=== PATIENT | male | born 1975 | race Two or more races ===

== ENCOUNTER 2021-01-16 15:23 | Inpatient (IN) | payer MEDICAID, OTHER ==
[~2021-01-16] VITALS: Ht 172.7 cm; Wt 170.6 kg
[2021-01-16] MEDS ORDERED: ETOMIDATE (2MG/ML) 20ML VIAL IV ONE (15:35)
[2021-01-16] MEDS ORDERED: SUCCINYLCHOLINE CHLORIDE 20 MG/ML 10ML VIAL IV ONE (15:35)
[2021-01-16 15:36] VITALS: BP 89/50
[2021-01-16] MEDS: MIDAZOLAM DRIP 50 mg/50mL 50 ML IV SCH ×3 (15:36→21:00)
[2021-01-16] MEDS ORDERED: PROPOFOL 100 ML IV ONE ×3 (15:45→18:58)
[2021-01-16] MEDS ORDERED: methylPREDNISolone SOD SUCC 125 MG/2 ML VL IV ONE ×2 (15:45→19:15)
[2021-01-16] MEDS: fentaNYL Drip 2500mCg/250mlNS 250 ML IV SCH (15:45)
[2021-01-16] MEDS: NOREPINEPHRINE 8 MG/250ML KIT 250 ML IV SCH (15:54)
[2021-01-16] MEDS ORDERED: NOREPINEPHRINE 8 MG/250ML KIT 250 ML IV ONE (15:54)
[2021-01-16 16:00] LABS: Basophils # (auto) 0 10 ^3/uL (0-0.2); Basophils % (auto) 0.3 % (0.0-2.0); Eosinophils # (auto) 0 10 ^3/uL (0-0.8); Eosinophils % (auto) 0.2 % (0.0-7.0); Hematocrit 44.4 % (41.0-53.0); Hemoglobin 14.9 g/dL (13.5-17.5); Lymphocytes # (auto) 1.9 10 ^3/uL (0.4-5.4); Lymphocytes % (auto) 16.1 % (10.0-50.0); Mean Corpuscular Hemoglobin 28.3 pg (28.0-32.0); Mean Corpuscular Hgb Conc. 33.6 g/dL (32.0-36.0); Mean Corpuscular Volume 84.3 fL (80.0-100.0); Monocytes # (auto) 0.7 10 ^3/uL (0-1.3); Monocytes % (auto) 5.6 % (0.0-12.0); Neutrophils # (auto) 9.2 10 ^3/uL (1.6-8.6); Neutrophils % (auto) 77.8 % (37.0-80.0); Nucleated Red Blood Cells % 1.1 %; Red Blood Cells 5.26 10^6/uL (4.5-5.90); Red Cell Distribution Width 13.9 % (11.8-14.3); White Blood Cell 11.8 10^3/uL (4.4-10.8)
[2021-01-16] MEDS ORDERED: AZITHROMYCIN 500MG/ 250ML 250 ML IV ONE (16:00)
[2021-01-16] MEDS ORDERED: methylPREDNISolone SOD SUCC 125 MG/2 ML VL ONE (16:03)
[2021-01-16 16:13] LABS: Albumin 2.7 g/dL (3.4-5.0); Magnesium 2.5 mg/dL (1.6-2.6); Potassium 3.7 mmol/L (3.5-5.1)
[2021-01-16] MEDS ORDERED: FUROSEMIDE 100 MG/10ML VIAL IV ONE (16:15)
[2021-01-16] MEDS ORDERED: ROCURONIUM 10MG/ML 10ML VIAL IV ONE (16:15)
[2021-01-16 16:19] LABS: BUN/Creatinine Ratio 13.1; Bilirubin, Total 0.6 mg/dL (0.2-1.0); Total Protein 8.1 g/dL (6.4-8.2)
[2021-01-16] MEDS: PROPOFOL 100 ML IV SCH ×3 (16:20→23:16)
[2021-01-16 16:29] LABS: Urine Bacteria FEW /hpf (None Seen); Urine Blood Negative /uL (Negative); Urine Hyaline Cast MOD /lpf (0 - 2); Urine Mucus FEW (None Seen); Urine Specific Gravity 1.021 (1.001-1.035); Urine WBC 1 /hpf (0 - 3)
[2021-01-16 18:34] LABS: Lactic Acid w/Reflex 2.7 mmol/L (0.4-2.0)
[2021-01-16 18:35] VITALS: BP 100/52
[2021-01-16] MEDS ORDERED: NOREPINEPHRINE 8 MG/250ML KIT 250 ML IV SCH (19:15)
[2021-01-16] MEDS ORDERED: PROPOFOL 100 ML IV SCH (19:15)
[2021-01-16] MEDS ORDERED: REMDESIVIR PER PHARMACY 0 ML IV SCH (19:45)
[2021-01-16] MEDS ORDERED: ACETAMINOPHEN 325 MG RECT SUPP PR PRN (20:00)
[2021-01-16] MEDS ORDERED: DEXTROSE (50%) 50ML SYRG IV PRN (20:00)
[2021-01-16] MEDS ORDERED: hydrALAZINE HCL 20 MG/ML VL IV PRN (20:00)
[2021-01-16] MEDS: ROCURONIUM BROMIDE 1,000 MG in D5W 5% 150 ML IV SCH (21:06)
[2021-01-16] MEDS: SODIUM CHLORIDE 0.9% 1,000 ML IV SCH (21:08)
[2021-01-16] MEDS: ENOXAPARIN SOD 40 MG/0.4 ML SYRINGE SC SCH (21:45)
[2021-01-16 22:20] VITALS: BP 112/58
[2021-01-16] MEDS: InsuLIN REG 1unit/0.01ml Soln (100units/ml) SC SCH (23:30)
[2021-01-16] MEDS: ACCU-CHEK COMFORT CURVE STRIP VI SCH (23:30)
[2021-01-17] MEDS: PROPOFOL 100 ML IV SCH ×9 (00:36→21:35)
[2021-01-17] MEDS: MIDAZOLAM DRIP 50 mg/50mL 50 ML IV SCH ×6 (01:19→21:35)
[2021-01-17] MEDS: fentaNYL Drip 2500mCg/250mlNS 250 ML IV SCH ×2 (01:39→12:49)
[2021-01-17 04:58] LABS: INR 1.02 (0.9-1.15)
[2021-01-17 05:02] LABS: Albumin 2.5 g/dL (3.4-5.0); Potassium 4.4 mmol/L (3.5-5.1)
[2021-01-17 05:07] LABS: BUN/Creatinine Ratio 12.8; Bilirubin, Total 1.1 mg/dL (0.2-1.0); Total Protein 7.5 g/dL (6.4-8.2)
[2021-01-17 05:10] LABS: Basophils # (auto) 0 10 ^3/uL (0-0.2); Basophils % (auto) 0.2 % (0.0-2.0); Eosinophils # (auto) 0 10 ^3/uL (0-0.8); Eosinophils % (auto) 0.1 % (0.0-7.0); Hematocrit 42.1 % (41.0-53.0); Hemoglobin 14.1 g/dL (13.5-17.5); Lymphocytes # (auto) 1.3 10 ^3/uL (0.4-5.4); Lymphocytes % (auto) 7.8 % (10.0-50.0); Mean Corpuscular Hemoglobin 28.5 pg (28.0-32.0); Mean Corpuscular Hgb Conc. 33.5 g/dL (32.0-36.0); Mean Corpuscular Volume 85.2 fL (80.0-100.0); Monocytes # (auto) 0.8 10 ^3/uL (0-1.3); Monocytes % (auto) 4.7 % (0.0-12.0); Neutrophils # (auto) 14.1 10 ^3/uL (1.6-8.6); Neutrophils % (auto) 87.2 % (37.0-80.0); Nucleated Red Blood Cells % 0.4 %; Red Blood Cells 4.94 10^6/uL (4.5-5.90); Red Cell Distribution Width 14.2 % (11.8-14.3); White Blood Cell 16.1 10^3/uL (4.4-10.8)
[2021-01-17 05:23] LABS: Thyroid Stimulating Hormone 0.2 uIU/mL (0.358-3.74)
[2021-01-17] MEDS: ACCU-CHEK COMFORT CURVE STRIP VI SCH ×3 (05:30→18:02)
[2021-01-17] MEDS: InsuLIN REG 1unit/0.01ml Soln (100units/ml) SC SCH ×3 (05:32→18:02)
[2021-01-17] MEDS: SODIUM CHLORIDE 0.9% 1,000 ML IV SCH ×2 (05:51→15:25)
[2021-01-17 06:35] VITALS: BP 123/60
[2021-01-17] MEDS: ROCURONIUM BROMIDE 1,000 MG in D5W 5% 150 ML IV SCH ×2 (07:30→15:13)
[2021-01-17] MEDS: ENOXAPARIN SOD 40 MG/0.4 ML SYRINGE SC SCH (10:17)
[2021-01-17] MEDS: PANTOPRAZOLE 40 MG/10 ML VIAL INJ IV SCH (10:17)
[2021-01-17 10:58] VITALS: BP 126/58
[2021-01-17] MEDS ORDERED: BUMETANIDE 2.5mg/10ml (0.25 mg/ml) INJ IV ONE (11:15)
[2021-01-17] MEDS: NOREPINEPHRINE 8 MG/250ML KIT 250 ML IV SCH (12:30)
[2021-01-17] MEDS ORDERED: ENOXAPARIN SOD 100 MG/1 ML SYRINGE SC ONE (12:30)
[2021-01-17] MEDS ORDERED: REMDESIVIR 200 MG in NS 210ml LOADING DOSE ADULT IV ONE (13:00)
[2021-01-17] MEDS ORDERED: ENOXAPARIN SOD 120 MG/0.8 ML SYRINGE SC ONE (13:15)
[2021-01-17 15:00] VITALS: BP 132/57
[2021-01-17] MEDS: LINEZOLID 600MG/300ML 300 ML IV SCH (17:13)
[2021-01-17 17:30] VITALS: BP 119/52
[2021-01-17] MEDS: ENOXAPARIN SOD 150 MG/1 ML SYRINGE SC SCH (22:09)
[2021-01-17 22:17] VITALS: BP 108/63
[2021-01-18] VITALS (34 sets, daily range): BP systolic 96–145; BP diastolic 53–79
[2021-01-18] MEDS: ACCU-CHEK COMFORT CURVE STRIP VI SCH ×5 (00:04→23:31)
[2021-01-18] MEDS: InsuLIN REG 1unit/0.01ml Soln (100units/ml) SC SCH ×5 (00:06→23:38)
[2021-01-18] MEDS: ROCURONIUM BROMIDE 1,000 MG in D5W 5% 150 ML IV SCH ×2 (02:42→14:11)
[2021-01-18] MEDS: SODIUM CHLORIDE 0.9% 1,000 ML IV SCH ×3 (03:23→21:33)
[2021-01-18] MEDS: LINEZOLID 600MG/300ML 300 ML IV SCH ×2 (04:21→17:00)
[2021-01-18 06:43] LABS: Hematocrit 39.2 % (41.0-53.0); Mean Corpuscular Hgb Conc. 33.3 g/dL (32.0-36.0); Mean Corpuscular Volume 84.1 fL (80.0-100.0); Red Blood Cells 4.66 10^6/uL (4.5-5.90); Red Cell Distribution Width 13.9 % (11.8-14.3); White Blood Cell 16.7 10^3/uL (4.4-10.8)
[2021-01-18 06:51] LABS: Basophils % (manual) 0 (0.0-2.0); Blast Cells 0; Eosinophils % (manual) 0 (0-7); Myelocytes % 0; Promyelocytes % 0; Reactive Lymphocytes 0
[2021-01-18 07:07] LABS: Potassium 4.3 mmol/L (3.5-5.1)
[2021-01-18 07:18] LABS: BUN/Creatinine Ratio 13.1; Calcium 7.8 mg/dL (8.5-10.1)
[2021-01-18 07:22] LABS: Band Neutrophils % (manual) 6; Lymphocytes % (manual) 6 (10.0-50.0); Metamyelocytes % 1; Monocytes % (manual) 5 (0-12)
[2021-01-18] MEDS ORDERED: DOPamine 1600MCG/ML D5W 250 ML IV SCH (07:30)
[2021-01-18] MEDS ORDERED: cefTRIAXone 1GM/50ML D5W 50 ML IV SCH (09:00)
[2021-01-18] MEDS: PANTOPRAZOLE 40 MG/10 ML VIAL INJ IV SCH (10:00)
[2021-01-18] MEDS ORDERED: TOCILIZUMAB 400 MG in SODIUM CHL 0.9% 80 ML IV SCH ×2 (11:30→11:45)
[2021-01-18] MEDS ORDERED: BUMETANIDE 2.5mg/10ml (0.25 mg/ml) INJ IV ONE (14:30)
[2021-01-18] MEDS: ENOXAPARIN SOD 150 MG/1 ML SYRINGE SC SCH ×2 (14:52→21:33)
[2021-01-18] MEDS: AZITHROMYCIN 500MG/ 250ML 250 ML IV SCH (14:52)
[2021-01-18] MEDS: DOPamine 1600MCG/ML D5W 250 ML IV SCH ×2 (14:52→21:34)
[2021-01-18] MEDS ORDERED: REMDESIVIR 100mg 100 MG in SODIUM CHL 0.9% 230 ML IV SCH (15:00)
[2021-01-18] MEDS: NOREPINEPHRINE 8 MG/250ML KIT 250 ML IV SCH (15:36)
[2021-01-18] MEDS: fentaNYL Drip 2500mCg/250mlNS 250 ML IV SCH (15:45)
[2021-01-18] MEDS: PROPOFOL 100 ML IV SCH (23:13)
[2021-01-19] VITALS (76 sets, daily range): BP systolic 82–146; BP diastolic 32–79
[2021-01-19] MEDS: MIDAZOLAM DRIP 50 mg/50mL 50 ML IV SCH ×2 (00:30→05:37)
[2021-01-19] MEDS: DOPamine 1600MCG/ML D5W 250 ML IV SCH ×3 (00:30→18:45)
[2021-01-19] MEDS: ROCURONIUM BROMIDE 1,000 MG in D5W 5% 150 ML IV SCH ×2 (01:40→13:09)
[2021-01-19] MEDS: PROPOFOL 100 ML IV SCH ×3 (03:03→08:10)
[2021-01-19 04:08] LABS: Hematocrit 40.5 % (41.0-53.0); Hemoglobin 13.5 g/dL (13.5-17.5); Mean Corpuscular Hemoglobin 27.9 pg (28.0-32.0); Mean Corpuscular Hgb Conc. 33.2 g/dL (32.0-36.0); Mean Corpuscular Volume 84.1 fL (80.0-100.0); Red Blood Cells 4.82 10^6/uL (4.5-5.90); Red Cell Distribution Width 13.8 % (11.8-14.3); White Blood Cell 16.1 10^3/uL (4.4-10.8)
[2021-01-19 04:27] LABS: BUN/Creatinine Ratio 13.6; Calcium 7.4 mg/dL (8.5-10.1); Potassium 3.8 mmol/L (3.5-5.1)
[2021-01-19] MEDS: LINEZOLID 600MG/300ML 300 ML IV SCH ×2 (05:06→17:26)
[2021-01-19 05:14] LABS: Basophils % (manual) 0 (0.0-2.0); Blast Cells 0; Eosinophils % (manual) 0 (0-7); Promyelocytes % 0; Reactive Lymphocytes 0
[2021-01-19] MEDS: ACCU-CHEK COMFORT CURVE STRIP VI SCH ×4 (05:36→23:39)
[2021-01-19] MEDS: InsuLIN REG 1unit/0.01ml Soln (100units/ml) SC SCH ×4 (06:08→23:39)
[2021-01-19 06:18] LABS: Band Neutrophils % (manual) 6; Lymphocytes % (manual) 7 (10.0-50.0); Metamyelocytes % 1; Monocytes % (manual) 7 (0-12); Myelocytes % 4
[2021-01-19] MEDS: SODIUM CHLORIDE 0.9% 1,000 ML IV SCH ×2 (08:00→18:00)
[2021-01-19] MEDS: ENOXAPARIN SOD 150 MG/1 ML SYRINGE SC SCH ×2 (09:42→22:08)
[2021-01-19] MEDS: AZITHROMYCIN 500MG/ 250ML 250 ML IV SCH (09:42)
[2021-01-19] MEDS: PANTOPRAZOLE 40 MG/10 ML VIAL INJ IV SCH (09:42)
[2021-01-19] MEDS: BUMETANIDE 2.5mg/10ml (0.25 mg/ml) INJ IV SCH (09:42)
[2021-01-19] MEDS: NOREPINEPHRINE 8 MG/250ML KIT 250 ML IV SCH (12:32)
[2021-01-19] MEDS ORDERED: HEPARIN 1,000 UNITS/ml 1ML VIAL ONE (14:35)
[2021-01-19] MEDS: fentaNYL Drip 2500mCg/250mlNS 250 ML IV SCH (15:45)
[2021-01-20] VITALS (101 sets, daily range): BP systolic 89–149; BP diastolic 42–83
[2021-01-20] MEDS: ROCURONIUM BROMIDE 1,000 MG in D5W 5% 150 ML IV SCH ×3 (00:38→23:36)
[2021-01-20] MEDS: SODIUM CHLORIDE 0.9% 1,000 ML IV SCH ×3 (04:00→23:31)
[2021-01-20 05:11] LABS: Hematocrit 38.9 % (41.0-53.0); Hemoglobin 12.9 g/dL (13.5-17.5); Mean Corpuscular Hemoglobin 28.3 pg (28.0-32.0); Mean Corpuscular Hgb Conc. 33.3 g/dL (32.0-36.0); Mean Corpuscular Volume 85.1 fL (80.0-100.0); Red Blood Cells 4.58 10^6/uL (4.5-5.90)
[2021-01-20 05:16] LABS: Basophils % (manual) 0 (0.0-2.0); Blast Cells 0; Eosinophils % (manual) 0 (0-7); Promyelocytes % 0; Reactive Lymphocytes 0
[2021-01-20 05:27] LABS: Calcium 7.7 mg/dL (8.5-10.1); Potassium 3.7 mmol/L (3.5-5.1)
[2021-01-20 05:29] LABS: BUN/Creatinine Ratio 16.7
[2021-01-20] MEDS: ACCU-CHEK COMFORT CURVE STRIP VI SCH ×3 (06:00→18:19)
[2021-01-20] MEDS: InsuLIN REG 1unit/0.01ml Soln (100units/ml) SC SCH ×3 (06:00→18:00)
[2021-01-20 06:32] LABS: Band Neutrophils % (manual) 14; Lymphocytes % (manual) 4 (10.0-50.0); Metamyelocytes % 2; Monocytes % (manual) 11 (0-12); Myelocytes % 4
[2021-01-20] MEDS: LINEZOLID 600MG/300ML 300 ML IV SCH (06:44)
[2021-01-20] MEDS ORDERED: SODIUM CHL 0.9% 1000 ML BAG XX ONE (07:00)
[2021-01-20] MEDS: DOPamine 1600MCG/ML D5W 250 ML IV SCH ×2 (08:14→21:36)
[2021-01-20] MEDS: BUMETANIDE 2.5mg/10ml (0.25 mg/ml) INJ IV SCH (10:00)
[2021-01-20] MEDS: ENOXAPARIN SOD 150 MG/1 ML SYRINGE SC SCH ×2 (10:00→21:35)
[2021-01-20] MEDS: AZITHROMYCIN 500MG/ 250ML 250 ML IV SCH (10:00)
[2021-01-20] MEDS: TOCILIZUMAB 400 MG in SODIUM CHL 0.9% 80 ML IV SCH ×2 (10:00→22:28)
[2021-01-20] MEDS: PANTOPRAZOLE 40 MG/10 ML VIAL INJ IV SCH (10:00)
[2021-01-20] MEDS ORDERED: ALBUMIN 25% 100 ML IV ONE (11:00)
[2021-01-20] MEDS: PROPOFOL 100 ML IV SCH (11:31)
[2021-01-20] MEDS: ceFAZolin 2 GM in D5W 5% 100 ML IV SCH (12:00)
[2021-01-20 13:00] LABS: Hepatitis A Ab IgM Negative
[2021-01-20 13:21] LABS: Hepatitis B Core IgM Negative
[2021-01-20 13:45] LABS: Hepatitis C Antibody Negative (Negative)
[2021-01-20] MEDS: NOREPINEPHRINE 8 MG/250ML KIT 250 ML IV SCH (15:36)
[2021-01-20] MEDS: MIDAZOLAM DRIP 50 mg/50mL 50 ML IV SCH (18:20)
[2021-01-20] MEDS: fentaNYL Drip 2500mCg/250mlNS 250 ML IV SCH (18:20)
[2021-01-21] VITALS (102 sets, daily range): BP systolic 82–139; BP diastolic 39–76
[2021-01-21] MEDS: ceFAZolin 2 GM in D5W 5% 100 ML IV SCH ×3 (00:56→22:01)
[2021-01-21 04:44] LABS: Hematocrit 38.7 % (41.0-53.0); Hemoglobin 13.3 g/dL (13.5-17.5); Mean Corpuscular Hemoglobin 29.2 pg (28.0-32.0); Mean Corpuscular Hgb Conc. 34.2 g/dL (32.0-36.0); Mean Corpuscular Volume 85.4 fL (80.0-100.0); Red Blood Cells 4.54 10^6/uL (4.5-5.90); White Blood Cell 8.4 10^3/uL (4.4-10.8)
[2021-01-21 04:48] LABS: Basophils % (manual) 0 (0.0-2.0); Blast Cells 0; Promyelocytes % 0; Reactive Lymphocytes 0
[2021-01-21 04:51] LABS: BUN/Creatinine Ratio 17.6; Calcium 8.4 mg/dL (8.5-10.1)
[2021-01-21] MEDS: InsuLIN REG 1unit/0.01ml Soln (100units/ml) SC SCH ×4 (06:00→18:00)
[2021-01-21] MEDS: ACCU-CHEK COMFORT CURVE STRIP VI SCH ×4 (06:17→18:40)
[2021-01-21 07:12] LABS: Band Neutrophils % (manual) 11; Eosinophils % (manual) 1 (0-7); Lymphocytes % (manual) 8 (10.0-50.0); Metamyelocytes % 1; Monocytes % (manual) 6 (0-12); Myelocytes % 7
[2021-01-21] MEDS: PROPOFOL 100 ML IV SCH ×3 (07:44→22:02)
[2021-01-21] MEDS: AZITHROMYCIN 500MG/ 250ML 250 ML IV SCH (10:00)
[2021-01-21] MEDS: ENOXAPARIN SOD 150 MG/1 ML SYRINGE SC SCH ×2 (10:01→22:00)
[2021-01-21] MEDS: PANTOPRAZOLE 40 MG/10 ML VIAL INJ IV SCH (10:01)
[2021-01-21] MEDS: MIDAZOLAM DRIP 50 mg/50mL 50 ML IV SCH ×2 (10:03→19:10)
[2021-01-21] MEDS ORDERED: DOPamine 1600MCG/ML D5W 250 ML IV SCH (10:45)
[2021-01-21] MEDS: BUMETANIDE 2.5mg/10ml (0.25 mg/ml) INJ IV SCH (13:51)
[2021-01-21] MEDS: fentaNYL Drip 2500mCg/250mlNS 250 ML IV SCH (17:05)
[2021-01-21] MEDS: DOPamine 3200MCG/ML 250 ML IV SCH (21:58)
[2021-01-22] VITALS (90 sets, daily range): BP systolic 60–140; BP diastolic 28–80
[2021-01-22] MEDS: ceFAZolin 2 GM in D5W 5% 100 ML IV SCH ×3 (04:11→21:07)
[2021-01-22 04:20] LABS: Hematocrit 39.7 % (41.0-53.0); Hemoglobin 13.1 g/dL (13.5-17.5); Mean Corpuscular Hemoglobin 28.3 pg (28.0-32.0); Mean Corpuscular Volume 85.7 fL (80.0-100.0); Red Blood Cells 4.64 10^6/uL (4.5-5.90); White Blood Cell 6.2 10^3/uL (4.4-10.8)
[2021-01-22] MEDS: ATRACURIUM BESYLATE 1,000 MG in D5W 5% 150 ML IV SCH ×2 (04:23→22:01)
[2021-01-22 04:26] LABS: Basophils % (manual) 0 (0.0-2.0); Blast Cells 0; Metamyelocytes % 0; Promyelocytes % 0; Reactive Lymphocytes 0
[2021-01-22 04:39] LABS: Calcium 8.4 mg/dL (8.5-10.1); Potassium 4.2 mmol/L (3.5-5.1)
[2021-01-22 04:43] LABS: BUN/Creatinine Ratio 19.5
[2021-01-22] MEDS: DOPamine 3200MCG/ML 250 ML IV SCH ×2 (05:37→21:01)
[2021-01-22] MEDS: InsuLIN REG 1unit/0.01ml Soln (100units/ml) SC SCH ×4 (06:00→17:27)
[2021-01-22] MEDS: ACCU-CHEK COMFORT CURVE STRIP VI SCH ×4 (06:05→17:27)
[2021-01-22 07:01] LABS: Band Neutrophils % (manual) 16; Eosinophils % (manual) 2 (0-7); Lymphocytes % (manual) 11 (10.0-50.0); Monocytes % (manual) 11 (0-12); Myelocytes % 1
[2021-01-22] MEDS: NOREPINEPHRINE 8 MG/250ML KIT 250 ML IV SCH (07:45)
[2021-01-22] MEDS: ENOXAPARIN SOD 150 MG/1 ML SYRINGE SC SCH ×2 (07:46→21:07)
[2021-01-22] MEDS: PANTOPRAZOLE 40 MG/10 ML VIAL INJ IV SCH (08:34)
[2021-01-22] MEDS: BUMETANIDE 2.5mg/10ml (0.25 mg/ml) INJ IV SCH (08:34)
[2021-01-22] MEDS ORDERED: metOLazone 5 MG TAB PO ONE (09:45)
[2021-01-22] MEDS: AZITHROMYCIN 500MG/ 250ML 250 ML IV SCH (10:26)
[2021-01-22] MEDS: fentaNYL Drip 2500mCg/250mlNS 250 ML IV SCH (13:23)
[2021-01-22] MEDS: MIDAZOLAM DRIP 50 mg/50mL 50 ML IV SCH (13:32)
[2021-01-22] MEDS: PROPOFOL 100 ML IV SCH (13:32)
[2021-01-22] MEDS ORDERED: ROCURONIUM 10MG/ML 10ML VIAL IV ONE ×2 (18:25→18:45)
[2021-01-23] VITALS (83 sets, daily range): BP systolic 95–137; BP diastolic 47–70
[2021-01-23] MEDS: InsuLIN REG 1unit/0.01ml Soln (100units/ml) SC SCH ×4 (00:40→18:53)
[2021-01-23] MEDS: ceFAZolin 2 GM in D5W 5% 100 ML IV SCH ×3 (04:03→20:40)
[2021-01-23 04:38] LABS: Hematocrit 40.1 % (41.0-53.0); Hemoglobin 13.3 g/dL (13.5-17.5); Mean Corpuscular Hemoglobin 28.2 pg (28.0-32.0); Mean Corpuscular Hgb Conc. 33.3 g/dL (32.0-36.0); Mean Corpuscular Volume 84.8 fL (80.0-100.0); Red Blood Cells 4.73 10^6/uL (4.5-5.90); Red Cell Distribution Width 14.1 % (11.8-14.3); White Blood Cell 5.7 10^3/uL (4.4-10.8)
[2021-01-23 05:01] LABS: BUN/Creatinine Ratio 22.8; Calcium 8.9 mg/dL (8.5-10.1)
[2021-01-23] MEDS: ACCU-CHEK COMFORT CURVE STRIP VI SCH ×4 (05:28→18:00)
[2021-01-23 05:36] LABS: Basophils % (manual) 0 (0.0-2.0); Blast Cells 0; Metamyelocytes % 0; Myelocytes % 0; Promyelocytes % 0; Reactive Lymphocytes 0
[2021-01-23 08:41] LABS: Band Neutrophils % (manual) 5; Eosinophils % (manual) 3 (0-7); Lymphocytes % (manual) 6 (10.0-50.0); Monocytes % (manual) 12 (0-12)
[2021-01-23] MEDS: DOPamine 3200MCG/ML 250 ML IV SCH ×2 (09:51→23:04)
[2021-01-23] MEDS ORDERED: METOCLOPRAMIDE HCL 5MG/ml INJ 2ml VIAL IV ONE (10:00)
[2021-01-23] MEDS ORDERED: METOCLOPRAMIDE HCL 5MG/ml INJ 2ml VIAL ONE (10:01)
[2021-01-23] MEDS: BUMETANIDE 2.5mg/10ml (0.25 mg/ml) INJ IV SCH (10:15)
[2021-01-23] MEDS: PANTOPRAZOLE 40 MG/10 ML VIAL INJ IV SCH (10:16)
[2021-01-23] MEDS: AZITHROMYCIN 500MG/ 250ML 250 ML IV SCH (10:16)
[2021-01-23] MEDS: DexAMETHasone SOD PHOS 10MG/1ML VIAL INJ IV SCH (10:56)
[2021-01-23] MEDS: ASCORBIC ACID 1,000 MG TAB PO SCH (10:57)
[2021-01-23] MEDS: CHOLECALCIFEROL (VITD3) 2,000 UNIT CAP/TAB PO SCH (10:57)
[2021-01-23] MEDS: ZINC SULFATE 220mg CAP or TAB PO SCH (10:57)
[2021-01-23] MEDS: ENOXAPARIN SOD 40 MG/0.4 ML SYRINGE SC SCH ×2 (10:57→22:57)
[2021-01-23] MEDS: MIDAZOLAM DRIP 50 mg/50mL 50 ML IV SCH (15:36)
[2021-01-23] MEDS: NOREPINEPHRINE 8 MG/250ML KIT 250 ML IV SCH (15:36)
[2021-01-23] MEDS: ATRACURIUM BESYLATE 1,000 MG in D5W 5% 150 ML IV SCH (15:39)
[2021-01-23] MEDS: fentaNYL Drip 2500mCg/250mlNS 250 ML IV SCH (20:00)
[2021-01-24] VITALS (88 sets, daily range): BP systolic 101–136; BP diastolic 49–68
[2021-01-24] MEDS: ACCU-CHEK COMFORT CURVE STRIP VI SCH ×4 (00:01→17:43)
[2021-01-24] MEDS: ceFAZolin 2 GM in D5W 5% 100 ML IV SCH (03:40)
[2021-01-24 04:50] LABS: Basophils # (auto) 0.1 10 ^3/uL (0-0.2); Basophils % (auto) 0.6 % (0.0-2.0); Eosinophils # (auto) 0.1 10 ^3/uL (0-0.8); Hematocrit 40.9 % (41.0-53.0); Hemoglobin 13.8 g/dL (13.5-17.5); Lymphocytes # (auto) 0.3 10 ^3/uL (0.4-5.4); Lymphocytes % (auto) 3.4 % (10.0-50.0); Mean Corpuscular Hemoglobin 28.6 pg (28.0-32.0); Mean Corpuscular Hgb Conc. 33.7 g/dL (32.0-36.0); Mean Corpuscular Volume 84.7 fL (80.0-100.0); Monocytes # (auto) 0.3 10 ^3/uL (0-1.3); Monocytes % (auto) 3.3 % (0.0-12.0); Neutrophils # (auto) 9.2 10 ^3/uL (1.6-8.6); Neutrophils % (auto) 91.7 % (37.0-80.0); Nucleated Red Blood Cells % 0.1 %; Red Blood Cells 4.83 10^6/uL (4.5-5.90)
[2021-01-24 05:08] LABS: Albumin 2.5 g/dL (3.4-5.0); Calcium 8.9 mg/dL (8.5-10.1); Potassium 4.8 mmol/L (3.5-5.1)
[2021-01-24 05:11] LABS: BUN/Creatinine Ratio 22.6
[2021-01-24 05:13] LABS: Bilirubin, Total 0.8 mg/dL (0.2-1.0)
[2021-01-24] MEDS: InsuLIN REG 1unit/0.01ml Soln (100units/ml) SC SCH ×4 (06:06→17:46)
[2021-01-24] MEDS: ALBUTEROL SULF 2.5 MG/0.5ML(0.5%) NEB SOLN NEB PRN ×2 (06:50→14:09)
[2021-01-24] MEDS: IPRATROPIUM BROM 0.5 MG/2.5ML INH SOL NEB PRN ×2 (06:50→14:09)
[2021-01-24] MEDS: MIDAZOLAM DRIP 50 mg/50mL 50 ML IV SCH ×4 (07:15→23:00)
[2021-01-24] MEDS: PROPOFOL 100 ML IV SCH ×4 (07:26→22:00)
[2021-01-24] MEDS: ATRACURIUM BESYLATE 1,000 MG in D5W 5% 150 ML IV SCH (09:17)
[2021-01-24] MEDS: BUMETANIDE 2.5mg/10ml (0.25 mg/ml) INJ IV SCH (09:43)
[2021-01-24] MEDS: PANTOPRAZOLE 40 MG/10 ML VIAL INJ IV SCH (09:43)
[2021-01-24] MEDS: ZINC SULFATE 220mg CAP or TAB PO SCH (09:43)
[2021-01-24] MEDS: DexAMETHasone SOD PHOS 10MG/1ML VIAL INJ IV SCH (09:43)
[2021-01-24] MEDS: CHOLECALCIFEROL (VITD3) 2,000 UNIT CAP/TAB PO SCH (09:46)
[2021-01-24] MEDS: ENOXAPARIN SOD 40 MG/0.4 ML SYRINGE SC SCH ×2 (09:46→21:24)
[2021-01-24] MEDS: ASCORBIC ACID 1,000 MG TAB PO SCH (09:46)
[2021-01-24] MEDS: AZITHROMYCIN 500MG/ 250ML 250 ML IV SCH (09:47)
[2021-01-24] MEDS ORDERED: PIPERACILLIN-TAZOB 3.375GM 100 ML IV ONE (09:55)
[2021-01-24] MEDS ORDERED: PIPERACILLIN-TAZOB 2.25GM 50 ML IV ONE (10:30)
[2021-01-24] MEDS: DOPamine 3200MCG/ML 250 ML IV SCH (12:49)
[2021-01-24] MEDS: NOREPINEPHRINE 8 MG/250ML KIT 250 ML IV SCH (15:36)
[2021-01-24] MEDS: fentaNYL Drip 2500mCg/250mlNS 250 ML IV SCH (15:39)
[2021-01-24] MEDS: PIPERACILLIN-TAZOB 2.25GM 50 ML IV SCH (18:34)
[2021-01-25] VITALS (50 sets, daily range): BP systolic 94–124; BP diastolic 43–61
[2021-01-25] MEDS: ACCU-CHEK COMFORT CURVE STRIP VI SCH ×4 (00:09→18:23)
[2021-01-25] MEDS: PIPERACILLIN-TAZOB 2.25GM 50 ML IV SCH ×4 (00:09→18:23)
[2021-01-25] MEDS: fentaNYL Drip 2500mCg/250mlNS 250 ML IV SCH ×4 (00:11→21:10)
[2021-01-25] MEDS: PROPOFOL 100 ML IV SCH ×9 (00:12→21:04)
[2021-01-25] MEDS: MIDAZOLAM DRIP 50 mg/50mL 50 ML IV SCH ×4 (02:00→22:00)
[2021-01-25] MEDS: ATRACURIUM BESYLATE 1,000 MG in D5W 5% 150 ML IV SCH ×2 (02:55→20:33)
[2021-01-25 04:27] LABS: Basophils # (auto) 0.1 10 ^3/uL (0-0.2); Basophils % (auto) 0.6 % (0.0-2.0); Eosinophils # (auto) 0.1 10 ^3/uL (0-0.8); Eosinophils % (auto) 1.2 % (0.0-7.0); Hematocrit 38.6 % (41.0-53.0); Hemoglobin 12.6 g/dL (13.5-17.5); Lymphocytes # (auto) 0.6 10 ^3/uL (0.4-5.4); Mean Corpuscular Hemoglobin 27.7 pg (28.0-32.0); Mean Corpuscular Hgb Conc. 32.5 g/dL (32.0-36.0); Monocytes # (auto) 0.8 10 ^3/uL (0-1.3); Monocytes % (auto) 9.2 % (0.0-12.0); Neutrophils # (auto) 6.9 10 ^3/uL (1.6-8.6); Nucleated Red Blood Cells % 0.1 %; Red Blood Cells 4.54 10^6/uL (4.5-5.90); Red Cell Distribution Width 14.3 % (11.8-14.3); White Blood Cell 8.5 10^3/uL (4.4-10.8)
[2021-01-25] MEDS: DOPamine 3200MCG/ML 250 ML IV SCH ×2 (05:01→17:15)
[2021-01-25 05:04] LABS: BUN/Creatinine Ratio 27.5; Calcium 9.3 mg/dL (8.5-10.1)
[2021-01-25] MEDS: InsuLIN REG 1unit/0.01ml Soln (100units/ml) SC SCH ×4 (06:00→18:23)
[2021-01-25] MEDS: CHOLECALCIFEROL (VITD3) 2,000 UNIT CAP/TAB PO SCH (08:56)
[2021-01-25] MEDS: AZITHROMYCIN 500MG/ 250ML 250 ML IV SCH (08:56)
[2021-01-25] MEDS: ASCORBIC ACID 1,000 MG TAB PO SCH (08:56)
[2021-01-25] MEDS: ENOXAPARIN SOD 40 MG/0.4 ML SYRINGE SC SCH ×2 (08:56→21:04)
[2021-01-25] MEDS: BUMETANIDE 2.5mg/10ml (0.25 mg/ml) INJ IV SCH (08:57)
[2021-01-25] MEDS: PANTOPRAZOLE 40 MG/10 ML VIAL INJ IV SCH (08:57)
[2021-01-25] MEDS: ZINC SULFATE 220mg CAP or TAB PO SCH (09:00)
[2021-01-25] MEDS: DexAMETHasone SOD PHOS 10MG/1ML VIAL INJ IV SCH (10:32)
[2021-01-25] MEDS: NOREPINEPHRINE 8 MG/250ML KIT 250 ML IV SCH (15:36)
[2021-01-26] VITALS (82 sets, daily range): BP systolic 90–132; BP diastolic 36–94
[2021-01-26] MEDS: PIPERACILLIN-TAZOB 2.25GM 50 ML IV SCH ×4 (00:12→18:15)
[2021-01-26] MEDS: ACCU-CHEK COMFORT CURVE STRIP VI SCH ×4 (00:13→17:39)
[2021-01-26] MEDS: PROPOFOL 100 ML IV SCH ×6 (00:14→22:00)
[2021-01-26] MEDS: MIDAZOLAM DRIP 50 mg/50mL 50 ML IV SCH ×6 (01:00→22:00)
[2021-01-26 04:24] LABS: Basophils # (auto) 0 10 ^3/uL (0-0.2); Basophils % (auto) 0.6 % (0.0-2.0); Eosinophils # (auto) 0.2 10 ^3/uL (0-0.8); Eosinophils % (auto) 1.9 % (0.0-7.0); Hematocrit 35.9 % (41.0-53.0); Hemoglobin 12.3 g/dL (13.5-17.5); Lymphocytes % (auto) 11.9 % (10.0-50.0); Mean Corpuscular Hemoglobin 29.2 pg (28.0-32.0); Mean Corpuscular Hgb Conc. 34.2 g/dL (32.0-36.0); Mean Corpuscular Volume 85.3 fL (80.0-100.0); Monocytes # (auto) 1.1 10 ^3/uL (0-1.3); Monocytes % (auto) 12.5 % (0.0-12.0); Neutrophils # (auto) 6.3 10 ^3/uL (1.6-8.6); Neutrophils % (auto) 73.1 % (37.0-80.0); Nucleated Red Blood Cells % 0.1 %; Red Blood Cells 4.21 10^6/uL (4.5-5.90); Red Cell Distribution Width 14.3 % (11.8-14.3); White Blood Cell 8.6 10^3/uL (4.4-10.8)
[2021-01-26 04:41] LABS: Potassium 3.5 mmol/L (3.5-5.1)
[2021-01-26 04:58] LABS: Albumin 2.5 g/dL (3.4-5.0); BUN/Creatinine Ratio 29.4; Bilirubin, Total 0.7 mg/dL (0.2-1.0); CRP High Sensitivity 1.19 mg/dL (< 0.3); Calcium 8.9 mg/dL (8.5-10.1); Magnesium 3.5 mg/dL (1.6-2.6); Total Protein 6.5 g/dL (6.4-8.2)
[2021-01-26] MEDS: fentaNYL Drip 2500mCg/250mlNS 250 ML IV SCH ×3 (05:00→21:45)
[2021-01-26] MEDS: InsuLIN REG 1unit/0.01ml Soln (100units/ml) SC SCH ×4 (05:37→17:39)
[2021-01-26] MEDS: DOPamine 3200MCG/ML 250 ML IV SCH ×2 (06:55→21:44)
[2021-01-26] MEDS: AZITHROMYCIN 500MG/ 250ML 250 ML IV SCH (10:48)
[2021-01-26] MEDS: ENOXAPARIN SOD 40 MG/0.4 ML SYRINGE SC SCH ×2 (10:49→21:35)
[2021-01-26] MEDS: ASCORBIC ACID 1,000 MG TAB PO SCH (10:49)
[2021-01-26] MEDS: CHOLECALCIFEROL (VITD3) 2,000 UNIT CAP/TAB PO SCH (10:49)
[2021-01-26] MEDS: PANTOPRAZOLE 40 MG/10 ML VIAL INJ IV SCH (10:49)
[2021-01-26] MEDS: ZINC SULFATE 220mg CAP or TAB PO SCH (10:49)
[2021-01-26] MEDS: DexAMETHasone SOD PHOS 10MG/1ML VIAL INJ IV SCH (10:50)
[2021-01-26] MEDS: BUMETANIDE 2.5mg/10ml (0.25 mg/ml) INJ IV SCH (10:53)
[2021-01-26] MEDS: ATRACURIUM BESYLATE 1,000 MG in D5W 5% 150 ML IV SCH (14:11)
[2021-01-26] MEDS: NOREPINEPHRINE 8 MG/250ML KIT 250 ML IV SCH (15:36)
[2021-01-27] VITALS (69 sets, daily range): BP systolic 80–165; BP diastolic 33–102
[2021-01-27] MEDS: MIDAZOLAM DRIP 50 mg/50mL 50 ML IV SCH ×5 (01:00→22:00)
[2021-01-27] MEDS: PROPOFOL 100 ML IV SCH ×6 (02:00→23:00)
[2021-01-27 04:48] LABS: Basophils # (auto) 0 10 ^3/uL (0-0.2); Basophils % (auto) 0.4 % (0.0-2.0); Eosinophils # (auto) 0.1 10 ^3/uL (0-0.8); Eosinophils % (auto) 0.8 % (0.0-7.0); Hematocrit 35.6 % (41.0-53.0); Hemoglobin 12.2 g/dL (13.5-17.5); Lymphocytes # (auto) 0.7 10 ^3/uL (0.4-5.4); Lymphocytes % (auto) 7.3 % (10.0-50.0); Mean Corpuscular Hemoglobin 29.5 pg (28.0-32.0); Mean Corpuscular Hgb Conc. 34.4 g/dL (32.0-36.0); Mean Corpuscular Volume 85.8 fL (80.0-100.0); Monocytes # (auto) 1.1 10 ^3/uL (0-1.3); Monocytes % (auto) 10.8 % (0.0-12.0); Neutrophils # (auto) 7.9 10 ^3/uL (1.6-8.6); Neutrophils % (auto) 80.7 % (37.0-80.0); Nucleated Red Blood Cells % 0.1 %; Red Blood Cells 4.15 10^6/uL (4.5-5.90); Red Cell Distribution Width 13.9 % (11.8-14.3); White Blood Cell 9.8 10^3/uL (4.4-10.8)
[2021-01-27 04:53] LABS: Potassium 3.9 mmol/L (3.5-5.1)
[2021-01-27] MEDS: fentaNYL Drip 2500mCg/250mlNS 250 ML IV SCH ×2 (04:55→19:00)
[2021-01-27 05:07] LABS: Albumin 2.7 g/dL (3.4-5.0); BUN/Creatinine Ratio 29.8; Bilirubin, Total 0.8 mg/dL (0.2-1.0); CRP High Sensitivity 1.19 mg/dL (< 0.3); Calcium 8.8 mg/dL (8.5-10.1); Total Protein 6.8 g/dL (6.4-8.2)
[2021-01-27] MEDS: InsuLIN REG 1unit/0.01ml Soln (100units/ml) SC SCH ×4 (06:00→18:00)
[2021-01-27] MEDS: PIPERACILLIN-TAZOB 2.25GM 50 ML IV SCH ×2 (06:27)
[2021-01-27] MEDS: ACCU-CHEK COMFORT CURVE STRIP VI SCH ×4 (06:27→18:00)
[2021-01-27] MEDS: ATRACURIUM BESYLATE 1,000 MG in D5W 5% 150 ML IV SCH (07:49)
[2021-01-27] MEDS: PANTOPRAZOLE 40 MG/10 ML VIAL INJ IV SCH (10:35)
[2021-01-27] MEDS: BUMETANIDE 2.5mg/10ml (0.25 mg/ml) INJ IV SCH (10:44)
[2021-01-27] MEDS: ZINC SULFATE 220mg CAP or TAB PO SCH (10:46)
[2021-01-27] MEDS: ENOXAPARIN SOD 40 MG/0.4 ML SYRINGE SC SCH ×2 (10:46→22:25)
[2021-01-27] MEDS: CHOLECALCIFEROL (VITD3) 2,000 UNIT CAP/TAB PO SCH (10:46)
[2021-01-27] MEDS: ASCORBIC ACID 1,000 MG TAB PO SCH (10:47)
[2021-01-27] MEDS: DexAMETHasone SOD PHOS 10MG/1ML VIAL INJ IV SCH (10:48)
[2021-01-27] MEDS: AZITHROMYCIN 500MG/ 250ML 250 ML IV SCH (10:50)
[2021-01-27] MEDS: NOREPINEPHRINE 8 MG/250ML KIT 250 ML IV SCH (11:10)
[2021-01-27] MEDS ORDERED: MEROPENEM 1GM IVPB 100 ML IV ONE (12:30)
[2021-01-27] MEDS ORDERED: GENTAMICIN PER PHARMACY 0 ML IV SCH (12:30)
[2021-01-27 13:49] LABS: Protein, Urine 153.6 mg/dL (0.0-11.9)
[2021-01-27] MEDS ORDERED: GENTAMICIN SULFATE 320 MG in D5W 5% 100 ML IV ONE (14:00)
[2021-01-27] MEDS: DOPamine 3200MCG/ML 250 ML IV SCH (14:06)
[2021-01-27] MEDS: MEROPENEM 1GM IVPB 100 ML IV SCH (22:25)
[2021-01-28] VITALS (75 sets, daily range): BP systolic 102–146; BP diastolic 46–70
[2021-01-28] MEDS: ACCU-CHEK COMFORT CURVE STRIP VI SCH ×4 (00:15→18:27)
[2021-01-28] MEDS: MIDAZOLAM DRIP 50 mg/50mL 50 ML IV SCH ×5 (01:00→22:00)
[2021-01-28] MEDS: PROPOFOL 100 ML IV SCH ×6 (01:00→23:00)
[2021-01-28] MEDS: ATRACURIUM BESYLATE 1,000 MG in D5W 5% 150 ML IV SCH ×2 (01:27→19:05)
[2021-01-28] MEDS: DOPamine 3200MCG/ML 250 ML IV SCH ×2 (02:38→16:00)
[2021-01-28] MEDS: fentaNYL Drip 2500mCg/250mlNS 250 ML IV SCH (02:41)
[2021-01-28 04:51] LABS: Hematocrit 35.6 % (41.0-53.0); Hemoglobin 12.3 g/dL (13.5-17.5); Mean Corpuscular Hemoglobin 29.3 pg (28.0-32.0); Mean Corpuscular Hgb Conc. 34.6 g/dL (32.0-36.0); Mean Corpuscular Volume 84.6 fL (80.0-100.0); Red Cell Distribution Width 14.3 % (11.8-14.3); White Blood Cell 7.6 10^3/uL (4.4-10.8)
[2021-01-28 05:00] LABS: BUN/Creatinine Ratio 36.1; Calcium 9.2 mg/dL (8.5-10.1); Potassium 3.1 mmol/L (3.5-5.1)
[2021-01-28 05:36] LABS: Basophils % (manual) 0 (0.0-2.0); Blast Cells 0; Metamyelocytes % 0; Myelocytes % 0; Promyelocytes % 0; Reactive Lymphocytes 0
[2021-01-28] MEDS: InsuLIN REG 1unit/0.01ml Soln (100units/ml) SC SCH ×4 (05:55→18:00)
[2021-01-28] MEDS ORDERED: METOCLOPRAMIDE HCL 5MG/ml INJ 2ml VIAL IV ONE (08:00)
[2021-01-28 08:09] LABS: Band Neutrophils % (manual) 6; Eosinophils % (manual) 4 (0-7); Lymphocytes % (manual) 12 (10.0-50.0); Monocytes % (manual) 9 (0-12)
[2021-01-28] MEDS: PANTOPRAZOLE 40 MG/10 ML VIAL INJ IV SCH (08:42)
[2021-01-28] MEDS: DexAMETHasone SOD PHOS 10MG/1ML VIAL INJ IV SCH (08:49)
[2021-01-28] MEDS: BUMETANIDE 2.5mg/10ml (0.25 mg/ml) INJ IV SCH (09:00)
[2021-01-28] MEDS: ASCORBIC ACID 1,000 MG TAB PO SCH (09:07)
[2021-01-28] MEDS: ENOXAPARIN SOD 40 MG/0.4 ML SYRINGE SC SCH ×2 (09:07→22:01)
[2021-01-28] MEDS: CHOLECALCIFEROL (VITD3) 2,000 UNIT CAP/TAB PO SCH (09:08)
[2021-01-28] MEDS: MEROPENEM 1GM IVPB 100 ML IV SCH ×2 (09:30→22:00)
[2021-01-28] MEDS: ZINC SULFATE 220mg CAP or TAB PO SCH (09:30)
[2021-01-28] MEDS: POTASSIUM CHL 20MEQ/100ML 100 ML IV SCH ×2 (11:54→14:00)
[2021-01-28] MEDS: NOREPINEPHRINE 8 MG/250ML KIT 250 ML IV SCH (15:36)
[2021-01-28] MEDS: Nepro With Carb Steady 1 Liter Bottle GT SCH (22:02)
[2021-01-29] VITALS (88 sets, daily range): BP systolic 106–150; BP diastolic 56–76
[2021-01-29] MEDS: ACCU-CHEK COMFORT CURVE STRIP VI SCH ×4 (00:23→18:01)
[2021-01-29] MEDS: PROPOFOL 100 ML IV SCH ×5 (01:00→23:15)
[2021-01-29] MEDS: MIDAZOLAM DRIP 50 mg/50mL 50 ML IV SCH ×2 (01:00→19:23)
[2021-01-29] MEDS: fentaNYL Drip 2500mCg/250mlNS 250 ML IV SCH ×3 (02:00→19:24)
[2021-01-29 04:35] LABS: Hematocrit 36.6 % (41.0-53.0); Hemoglobin 12.3 g/dL (13.5-17.5); Mean Corpuscular Hemoglobin 28.4 pg (28.0-32.0); Mean Corpuscular Hgb Conc. 33.6 g/dL (32.0-36.0); Mean Corpuscular Volume 84.4 fL (80.0-100.0); Red Blood Cells 4.34 10^6/uL (4.5-5.90); Red Cell Distribution Width 14.2 % (11.8-14.3); White Blood Cell 5.9 10^3/uL (4.4-10.8)
[2021-01-29 04:40] LABS: Basophils % (manual) 0 (0.0-2.0); Blast Cells 0; Promyelocytes % 0; Reactive Lymphocytes 0
[2021-01-29] MEDS: DOPamine 3200MCG/ML 250 ML IV SCH (04:40)
[2021-01-29 04:48] LABS: Potassium 3.1 mmol/L (3.5-5.1)
[2021-01-29 05:06] LABS: Band Neutrophils % (manual) 4; Eosinophils % (manual) 4 (0-7); Lymphocytes % (manual) 21 (10.0-50.0); Metamyelocytes % 2; Monocytes % (manual) 7 (0-12); Myelocytes % 1
[2021-01-29] MEDS: InsuLIN REG 1unit/0.01ml Soln (100units/ml) SC SCH ×4 (06:00→18:00)
[2021-01-29] MEDS: IPRATROPIUM BROM 0.5 MG/2.5ML INH SOL NEB PRN (07:44)
[2021-01-29] MEDS: ALBUTEROL SULF 2.5 MG/0.5ML(0.5%) NEB SOLN NEB PRN (07:44)
[2021-01-29] MEDS: BUMETANIDE 2.5mg/10ml (0.25 mg/ml) INJ IV SCH (10:20)
[2021-01-29] MEDS: DexAMETHasone SOD PHOS 10MG/1ML VIAL INJ IV SCH (10:20)
[2021-01-29] MEDS: ZINC SULFATE 220mg CAP or TAB PO SCH (10:21)
[2021-01-29] MEDS: METOCLOPRAMIDE HCL 5MG/ml INJ 2ml VIAL IV SCH (10:21)
[2021-01-29] MEDS: MEROPENEM 1GM IVPB 100 ML IV SCH (10:21)
[2021-01-29] MEDS: ASCORBIC ACID 1,000 MG TAB PO SCH (10:21)
[2021-01-29] MEDS: PANTOPRAZOLE 40 MG/10 ML VIAL INJ IV SCH (10:21)
[2021-01-29] MEDS: ENOXAPARIN SOD 40 MG/0.4 ML SYRINGE SC SCH (10:22)
[2021-01-29] MEDS: CHOLECALCIFEROL (VITD3) 2,000 UNIT CAP/TAB PO SCH (10:22)
[2021-01-29] MEDS: POTASSIUM CHL 20MEQ/100ML 100 ML IV SCH ×2 (10:54→14:58)
[2021-01-29] MEDS: ATRACURIUM BESYLATE 1,000 MG in D5W 5% 150 ML IV SCH ×2 (12:43→18:00)
[2021-01-29] MEDS ORDERED: GENTAMICIN SULFATE IV ONE (15:00)
[2021-01-29] MEDS ORDERED: D5W 5% IV ONE (15:00)
[2021-01-29] MEDS: NOREPINEPHRINE 8 MG/250ML KIT 250 ML IV SCH (15:36)
[2021-01-29] MEDS ORDERED: DOPamine 1600MCG/ML D5W 0 ML IV ONE (18:17)
[2021-01-30] VITALS (104 sets, daily range): BP systolic 101–162; BP diastolic 54–81
[2021-01-30] MEDS: ACCU-CHEK COMFORT CURVE STRIP VI SCH ×3 (00:29→12:19)
[2021-01-30] MEDS: ENOXAPARIN SOD 40 MG/0.4 ML SYRINGE SC SCH ×3 (00:30→22:13)
[2021-01-30] MEDS: MEROPENEM 1GM IVPB 100 ML IV SCH ×3 (00:31→22:14)
[2021-01-30] MEDS: MIDAZOLAM DRIP 50 mg/50mL 50 ML IV SCH ×3 (00:32→15:08)
[2021-01-30] MEDS: DOPamine 3200MCG/ML 250 ML IV SCH ×2 (00:32→09:52)
[2021-01-30] MEDS: fentaNYL Drip 2500mCg/250mlNS 250 ML IV SCH ×2 (01:15→10:18)
[2021-01-30] MEDS: PROPOFOL 100 ML IV SCH ×5 (01:34→20:24)
[2021-01-30 04:36] LABS: Hematocrit 38.6 % (41.0-53.0); Hemoglobin 12.8 g/dL (13.5-17.5); Mean Corpuscular Hemoglobin 28.4 pg (28.0-32.0); Mean Corpuscular Hgb Conc. 33.2 g/dL (32.0-36.0); Mean Corpuscular Volume 85.4 fL (80.0-100.0); Red Blood Cells 4.52 10^6/uL (4.5-5.90); Red Cell Distribution Width 14.4 % (11.8-14.3)
[2021-01-30 04:48] LABS: Basophils % (manual) 0 (0.0-2.0); Blast Cells 0; Promyelocytes % 0; Reactive Lymphocytes 0
[2021-01-30 04:57] LABS: Calcium 9.3 mg/dL (8.5-10.1); Potassium 3.2 mmol/L (3.5-5.1)
[2021-01-30 05:00] LABS: BUN/Creatinine Ratio 37.8
[2021-01-30 05:34] LABS: Band Neutrophils % (manual) 6; Eosinophils % (manual) 3 (0-7); Lymphocytes % (manual) 29 (10.0-50.0); Metamyelocytes % 2; Monocytes % (manual) 5 (0-12); Myelocytes % 2
[2021-01-30] MEDS: InsuLIN REG 1unit/0.01ml Soln (100units/ml) SC SCH ×4 (06:00→18:00)
[2021-01-30] MEDS: IPRATROPIUM BROM 0.5 MG/2.5ML INH SOL NEB PRN (07:46)
[2021-01-30] MEDS: ALBUTEROL SULF 2.5 MG/0.5ML(0.5%) NEB SOLN NEB PRN (07:46)
[2021-01-30] MEDS: DexAMETHasone SOD PHOS 10MG/1ML VIAL INJ IV SCH (09:09)
[2021-01-30] MEDS: PANTOPRAZOLE 40 MG/10 ML VIAL INJ IV SCH (09:09)
[2021-01-30] MEDS: METOCLOPRAMIDE HCL 5MG/ml INJ 2ml VIAL IV SCH (09:10)
[2021-01-30] MEDS: BUMETANIDE 2.5mg/10ml (0.25 mg/ml) INJ IV SCH (09:10)
[2021-01-30] MEDS: CHOLECALCIFEROL (VITD3) 2,000 UNIT CAP/TAB PO SCH (09:10)
[2021-01-30] MEDS: ASCORBIC ACID 1,000 MG TAB PO SCH (09:10)
[2021-01-30] MEDS: ZINC SULFATE 220mg CAP or TAB PO SCH (09:10)
[2021-01-30] MEDS: POTASSIUM CHL 20MEQ/100ML 100 ML IV SCH ×2 (12:22→12:30)
[2021-01-30] MEDS: ACETYLCYSTEINE 20%(200MG/ML) SOL 4ML NEB SCH ×2 (12:25→20:30)
[2021-01-30] MEDS: ALBUTEROL SULF 2.5 MG/0.5ML(0.5%) NEB SOLN NEB SCH ×2 (12:26→20:30)
[2021-01-30] MEDS: IPRATROPIUM BROM 0.5 MG/2.5ML INH SOL NEB SCH ×2 (12:26→20:30)
[2021-01-30] MEDS: NOREPINEPHRINE 8 MG/250ML KIT 250 ML IV SCH (15:36)
[2021-01-30] MEDS: ATRACURIUM BESYLATE 1,000 MG in D5W 5% 150 ML IV SCH (23:59)
[2021-01-31] VITALS (96 sets, daily range): BP systolic 90–154; BP diastolic 44–98
[2021-01-31] MEDS: DOPamine 3200MCG/ML 250 ML IV SCH ×2 (01:50→15:29)
[2021-01-31] MEDS: fentaNYL Drip 2500mCg/250mlNS 250 ML IV SCH ×2 (01:52→10:11)
[2021-01-31 04:20] LABS: Basophils # (auto) 0.1 10 ^3/uL (0-0.2); Eosinophils # (auto) 0.1 10 ^3/uL (0-0.8); Eosinophils % (auto) 1.6 % (0.0-7.0); Hematocrit 41.5 % (41.0-53.0); Hemoglobin 13.9 g/dL (13.5-17.5); Lymphocytes # (auto) 0.9 10 ^3/uL (0.4-5.4); Lymphocytes % (auto) 14.1 % (10.0-50.0); Mean Corpuscular Hemoglobin 28.5 pg (28.0-32.0); Mean Corpuscular Hgb Conc. 33.6 g/dL (32.0-36.0); Monocytes # (auto) 0.8 10 ^3/uL (0-1.3); Monocytes % (auto) 12.3 % (0.0-12.0); Neutrophils # (auto) 4.7 10 ^3/uL (1.6-8.6); Nucleated Red Blood Cells % 0.1 %; Red Blood Cells 4.88 10^6/uL (4.5-5.90); Red Cell Distribution Width 14.3 % (11.8-14.3); White Blood Cell 6.7 10^3/uL (4.4-10.8)
[2021-01-31] MEDS: MIDAZOLAM DRIP 50 mg/50mL 50 ML IV SCH ×2 (04:42→10:12)
[2021-01-31 04:43] LABS: Calcium 9.7 mg/dL (8.5-10.1); Potassium 4.1 mmol/L (3.5-5.1)
[2021-01-31] MEDS: PROPOFOL 100 ML IV SCH ×3 (04:43→19:20)
[2021-01-31] MEDS: InsuLIN REG 1unit/0.01ml Soln (100units/ml) SC SCH ×5 (06:16→23:50)
[2021-01-31] MEDS: ACCU-CHEK COMFORT CURVE STRIP VI SCH ×5 (06:17→23:50)
[2021-01-31] MEDS: ALBUTEROL SULF 2.5 MG/0.5ML(0.5%) NEB SOLN NEB SCH ×3 (06:33→22:08)
[2021-01-31] MEDS: IPRATROPIUM BROM 0.5 MG/2.5ML INH SOL NEB SCH ×3 (06:33→22:08)
[2021-01-31] MEDS: ACETYLCYSTEINE 20%(200MG/ML) SOL 4ML NEB SCH ×3 (06:34→22:08)
[2021-01-31] MEDS: BUMETANIDE 2.5mg/10ml (0.25 mg/ml) INJ IV SCH (10:09)
[2021-01-31] MEDS: DexAMETHasone SOD PHOS 10MG/1ML VIAL INJ IV SCH (10:09)
[2021-01-31] MEDS: METOCLOPRAMIDE HCL 5MG/ml INJ 2ml VIAL IV SCH (10:10)
[2021-01-31] MEDS: ZINC SULFATE 220mg CAP or TAB PO SCH (10:10)
[2021-01-31] MEDS: MEROPENEM 1GM IVPB 100 ML IV SCH ×2 (10:10→22:03)
[2021-01-31] MEDS: PANTOPRAZOLE 40 MG/10 ML VIAL INJ IV SCH (10:10)
[2021-01-31] MEDS: ASCORBIC ACID 1,000 MG TAB PO SCH (10:10)
[2021-01-31] MEDS: ENOXAPARIN SOD 40 MG/0.4 ML SYRINGE SC SCH ×2 (10:10→22:03)
[2021-01-31] MEDS: CHOLECALCIFEROL (VITD3) 2,000 UNIT CAP/TAB PO SCH (10:11)
[2021-01-31] MEDS: NOREPINEPHRINE 8 MG/250ML KIT 250 ML IV SCH (15:36)
[2021-01-31] MEDS: ATRACURIUM BESYLATE 1,000 MG in D5W 5% 150 ML IV SCH (17:37)
[2021-01-31] MEDS ORDERED: GENTAMICIN SULFATE 240 MG in D5W 5% 100 ML IV ONE (20:00)
[2021-02-01] VITALS (90 sets, daily range): BP systolic 110–171; BP diastolic 57–121
[2021-02-01] MEDS: DOPamine 3200MCG/ML 250 ML IV SCH (02:33)
[2021-02-01] MEDS: fentaNYL Drip 2500mCg/250mlNS 250 ML IV SCH ×3 (02:35→16:54)
[2021-02-01] MEDS: ACCU-CHEK COMFORT CURVE STRIP VI SCH ×3 (06:00→17:21)
[2021-02-01] MEDS: InsuLIN REG 1unit/0.01ml Soln (100units/ml) SC SCH ×3 (06:00→17:21)
[2021-02-01 07:29] LABS: Basophils # (auto) 0.1 10 ^3/uL (0-0.2); Basophils % (auto) 1.9 % (0.0-2.0); Eosinophils # (auto) 0.3 10 ^3/uL (0-0.8); Eosinophils % (auto) 3.4 % (0.0-7.0); Hematocrit 39.5 % (41.0-53.0); Lymphocytes % (auto) 12.9 % (10.0-50.0); Mean Corpuscular Hemoglobin 28.4 pg (28.0-32.0); Mean Corpuscular Hgb Conc. 32.9 g/dL (32.0-36.0); Mean Corpuscular Volume 86.5 fL (80.0-100.0); Monocytes # (auto) 0.9 10 ^3/uL (0-1.3); Monocytes % (auto) 11.1 % (0.0-12.0); Neutrophils # (auto) 5.6 10 ^3/uL (1.6-8.6); Neutrophils % (auto) 70.7 % (37.0-80.0); Nucleated Red Blood Cells % 0.1 %; Red Blood Cells 4.57 10^6/uL (4.5-5.90); Red Cell Distribution Width 14.5 % (11.8-14.3); White Blood Cell 7.9 10^3/uL (4.4-10.8)
[2021-02-01 07:45] LABS: BUN/Creatinine Ratio 25.3; Calcium 9.5 mg/dL (8.5-10.1); Potassium 4.7 mmol/L (3.5-5.1)
[2021-02-01] MEDS: PROPOFOL 100 ML IV SCH ×4 (08:31→18:39)
[2021-02-01] MEDS: PANTOPRAZOLE 40 MG/10 ML VIAL INJ IV SCH (09:05)
[2021-02-01] MEDS: ZINC SULFATE 220mg CAP or TAB PO SCH (09:05)
[2021-02-01] MEDS: METOCLOPRAMIDE HCL 5MG/ml INJ 2ml VIAL IV SCH (09:05)
[2021-02-01] MEDS: MEROPENEM 1GM IVPB 100 ML IV SCH ×2 (09:05→21:29)
[2021-02-01] MEDS: ASCORBIC ACID 1,000 MG TAB PO SCH (09:05)
[2021-02-01] MEDS: BUMETANIDE 2.5mg/10ml (0.25 mg/ml) INJ IV SCH ×2 (09:05→18:42)
[2021-02-01] MEDS: DexAMETHasone SOD PHOS 10MG/1ML VIAL INJ IV SCH (09:05)
[2021-02-01] MEDS: ENOXAPARIN SOD 40 MG/0.4 ML SYRINGE SC SCH ×2 (09:06→21:30)
[2021-02-01] MEDS: CHOLECALCIFEROL (VITD3) 2,000 UNIT CAP/TAB PO SCH (09:06)
[2021-02-01] MEDS: MIDAZOLAM DRIP 50 mg/50mL 50 ML IV SCH ×3 (10:11→17:21)
[2021-02-01] MEDS: DOPamine 1600MCG/ML D5W 250 ML IV SCH (10:30)
[2021-02-01] MEDS: ALBUTEROL SULF 2.5 MG/0.5ML(0.5%) NEB SOLN NEB SCH ×3 (10:57→22:30)
[2021-02-01] MEDS: ACETYLCYSTEINE 20%(200MG/ML) SOL 4ML NEB SCH ×3 (10:57→22:30)
[2021-02-01] MEDS: IPRATROPIUM BROM 0.5 MG/2.5ML INH SOL NEB SCH ×3 (10:57→22:30)
[2021-02-01] MEDS: ATRACURIUM BESYLATE 1,000 MG in D5W 5% 150 ML IV SCH (11:15)
[2021-02-01] MEDS: SODIUM BICARBONATE 50ML VIAL 50 ML in D5W 5% 1,000 ML IV SCH ×2 (12:49→17:15)
[2021-02-01] MEDS: NOREPINEPHRINE 8 MG/250ML KIT 250 ML IV SCH (15:36)
[2021-02-02] VITALS (82 sets, daily range): BP systolic 87–116; BP diastolic 41–62
[2021-02-02] MEDS: SODIUM BICARBONATE 50ML VIAL 50 ML in D5W 5% 1,000 ML IV SCH ×2 (00:15→08:18)
[2021-02-02 02:14] LABS: Basophils # (auto) 0 10 ^3/uL (0-0.2); Basophils % (auto) 0.6 % (0.0-2.0); Eosinophils # (auto) 0.2 10 ^3/uL (0-0.8); Eosinophils % (auto) 3.1 % (0.0-7.0); Hematocrit 33.3 % (41.0-53.0); Hemoglobin 11.1 g/dL (13.5-17.5); Lymphocytes # (auto) 1.2 10 ^3/uL (0.4-5.4); Lymphocytes % (auto) 16.6 % (10.0-50.0); Mean Corpuscular Hemoglobin 28.6 pg (28.0-32.0); Mean Corpuscular Hgb Conc. 33.4 g/dL (32.0-36.0); Mean Corpuscular Volume 85.5 fL (80.0-100.0); Monocytes # (auto) 0.8 10 ^3/uL (0-1.3); Monocytes % (auto) 11.5 % (0.0-12.0); Neutrophils # (auto) 4.8 10 ^3/uL (1.6-8.6); Neutrophils % (auto) 68.2 % (37.0-80.0); Nucleated Red Blood Cells % 0.1 %; Red Cell Distribution Width 14.7 % (11.8-14.3); White Blood Cell 7.1 10^3/uL (4.4-10.8)
[2021-02-02 02:37] LABS: BUN/Creatinine Ratio 24.9; Potassium 4.3 mmol/L (3.5-5.1)
[2021-02-02 02:38] LABS: Calcium 8.3 mg/dL (8.5-10.1)
[2021-02-02] MEDS: DOPamine 1600MCG/ML D5W 250 ML IV SCH (04:52)
[2021-02-02] MEDS: ATRACURIUM BESYLATE 1,000 MG in D5W 5% 150 ML IV SCH ×2 (04:53→22:27)
[2021-02-02] MEDS: InsuLIN REG 1unit/0.01ml Soln (100units/ml) SC SCH ×2 (05:30)
[2021-02-02] MEDS: ACCU-CHEK COMFORT CURVE STRIP VI SCH ×2 (05:30)
[2021-02-02] MEDS: BUMETANIDE 2.5mg/10ml (0.25 mg/ml) INJ IV SCH ×2 (06:00→18:32)
[2021-02-02] MEDS: ACETYLCYSTEINE 20%(200MG/ML) SOL 4ML NEB SCH ×3 (08:58→18:39)
[2021-02-02] MEDS: ALBUTEROL SULF 2.5 MG/0.5ML(0.5%) NEB SOLN NEB SCH ×3 (08:58→18:39)
[2021-02-02] MEDS: IPRATROPIUM BROM 0.5 MG/2.5ML INH SOL NEB SCH ×3 (08:58→18:39)
[2021-02-02] MEDS: DexAMETHasone SOD PHOS 10MG/1ML VIAL INJ IV SCH (10:12)
[2021-02-02] MEDS: METOCLOPRAMIDE HCL 5MG/ml INJ 2ml VIAL IV SCH (10:12)
[2021-02-02] MEDS: PANTOPRAZOLE 40 MG/10 ML VIAL INJ IV SCH (10:12)
[2021-02-02] MEDS: MEROPENEM 1GM IVPB 100 ML IV SCH ×2 (10:12→22:14)
[2021-02-02] MEDS: CHOLECALCIFEROL (VITD3) 2,000 UNIT CAP/TAB PO SCH (10:13)
[2021-02-02] MEDS: ASCORBIC ACID 1,000 MG TAB PO SCH (10:13)
[2021-02-02] MEDS: ZINC SULFATE 220mg CAP or TAB PO SCH (10:13)
[2021-02-02] MEDS: ENOXAPARIN SOD 40 MG/0.4 ML SYRINGE SC SCH ×2 (10:13→22:14)
[2021-02-02] MEDS: SODIUM BICARBONATE 50ML VIAL 75 ML in D5W 5% 1,000 ML IV SCH ×2 (10:40→15:35)
[2021-02-02] MEDS: NOREPINEPHRINE 8 MG/250ML KIT 250 ML IV SCH (15:34)
[2021-02-02] MEDS: MIDAZOLAM DRIP 50 mg/50mL 50 ML IV SCH (21:16)
[2021-02-02] MEDS: PROPOFOL 100 ML IV SCH ×2 (21:16→22:15)
[2021-02-03] VITALS (101 sets, daily range): BP systolic 82–148; BP diastolic 32–77
[2021-02-03] MEDS: fentaNYL Drip 2500mCg/250mlNS 250 ML IV SCH ×4 (00:06→23:06)
[2021-02-03] MEDS: SODIUM BICARBONATE 50ML VIAL 75 ML in D5W 5% 1,000 ML IV SCH ×6 (00:26→21:43)
[2021-02-03] MEDS: DOPamine 1600MCG/ML D5W 250 ML IV SCH ×2 (00:26→17:44)
[2021-02-03] MEDS: MIDAZOLAM DRIP 50 mg/50mL 50 ML IV SCH ×7 (01:14→23:16)
[2021-02-03] MEDS: PROPOFOL 100 ML IV SCH ×8 (01:14→22:43)
[2021-02-03] MEDS: Nepro With Carb Steady 1 Liter Bottle GT SCH (05:00)
[2021-02-03 06:11] LABS: Basophils # (auto) 0.2 10 ^3/uL (0-0.2); Basophils % (auto) 2.5 % (0.0-2.0); Eosinophils # (auto) 0.4 10 ^3/uL (0-0.8); Eosinophils % (auto) 5.8 % (0.0-7.0); Hematocrit 31.3 % (41.0-53.0); Hemoglobin 10.5 g/dL (13.5-17.5); Lymphocytes # (auto) 1.1 10 ^3/uL (0.4-5.4); Lymphocytes % (auto) 16.4 % (10.0-50.0); Mean Corpuscular Hemoglobin 28.9 pg (28.0-32.0); Mean Corpuscular Hgb Conc. 33.7 g/dL (32.0-36.0); Mean Corpuscular Volume 85.9 fL (80.0-100.0); Monocytes # (auto) 0.7 10 ^3/uL (0-1.3); Monocytes % (auto) 10.7 % (0.0-12.0); Neutrophils # (auto) 4.5 10 ^3/uL (1.6-8.6); Neutrophils % (auto) 64.6 % (37.0-80.0); Nucleated Red Blood Cells % 0.1 %; Red Blood Cells 3.64 10^6/uL (4.5-5.90); Red Cell Distribution Width 14.6 % (11.8-14.3); White Blood Cell 6.9 10^3/uL (4.4-10.8)
[2021-02-03] MEDS: BUMETANIDE 2.5mg/10ml (0.25 mg/ml) INJ IV SCH ×2 (06:17→17:27)
[2021-02-03 06:26] LABS: BUN/Creatinine Ratio 30.7; Calcium 8.5 mg/dL (8.5-10.1); Potassium 3.5 mmol/L (3.5-5.1)
[2021-02-03] MEDS: ACETYLCYSTEINE 20%(200MG/ML) SOL 4ML NEB SCH ×3 (06:43→18:59)
[2021-02-03] MEDS: IPRATROPIUM BROM 0.5 MG/2.5ML INH SOL NEB SCH ×3 (06:44→18:59)
[2021-02-03] MEDS: ALBUTEROL SULF 2.5 MG/0.5ML(0.5%) NEB SOLN NEB SCH ×3 (06:44→18:59)
[2021-02-03] MEDS: METOCLOPRAMIDE HCL 5MG/ml INJ 2ml VIAL IV SCH (09:15)
[2021-02-03] MEDS: PANTOPRAZOLE 40 MG/10 ML VIAL INJ IV SCH (09:15)
[2021-02-03] MEDS: DexAMETHasone SOD PHOS 10MG/1ML VIAL INJ IV SCH (09:15)
[2021-02-03] MEDS: MEROPENEM 1GM IVPB 100 ML IV SCH ×2 (09:15→21:42)
[2021-02-03] MEDS: ZINC SULFATE 220mg CAP or TAB PO SCH (09:16)
[2021-02-03] MEDS: ENOXAPARIN SOD 40 MG/0.4 ML SYRINGE SC SCH ×2 (09:16→21:43)
[2021-02-03] MEDS: ASCORBIC ACID 1,000 MG TAB PO SCH (09:16)
[2021-02-03] MEDS: CHOLECALCIFEROL (VITD3) 2,000 UNIT CAP/TAB PO SCH (09:16)
[2021-02-03] MEDS ORDERED: GENTAMICIN SULFATE 240 MG in D5W 5% 100 ML IV ONE (11:00)
[2021-02-03] MEDS: NOREPINEPHRINE 8 MG/250ML KIT 250 ML IV SCH (15:36)
[2021-02-03] MEDS: ATRACURIUM BESYLATE 1,000 MG in D5W 5% 150 ML IV SCH (16:09)
[2021-02-04] VITALS (67 sets, daily range): BP systolic 104–141; BP diastolic 52–77
[2021-02-04] MEDS: PROPOFOL 100 ML IV SCH ×9 (00:19→18:02)
[2021-02-04] MEDS: MIDAZOLAM DRIP 50 mg/50mL 50 ML IV SCH ×5 (03:25→17:57)
[2021-02-04 04:10] LABS: Basophils # (auto) 0 10 ^3/uL (0-0.2); Basophils % (auto) 0.8 % (0.0-2.0); Eosinophils # (auto) 0.6 10 ^3/uL (0-0.8); Eosinophils % (auto) 10.4 % (0.0-7.0); Hematocrit 30.3 % (41.0-53.0); Hemoglobin 10.4 g/dL (13.5-17.5); Lymphocytes # (auto) 1.2 10 ^3/uL (0.4-5.4); Lymphocytes % (auto) 21.3 % (10.0-50.0); Mean Corpuscular Hemoglobin 29.3 pg (28.0-32.0); Mean Corpuscular Hgb Conc. 34.4 g/dL (32.0-36.0); Mean Corpuscular Volume 85.2 fL (80.0-100.0); Monocytes # (auto) 0.6 10 ^3/uL (0-1.3); Neutrophils # (auto) 3.3 10 ^3/uL (1.6-8.6); Neutrophils % (auto) 56.5 % (37.0-80.0); Red Blood Cells 3.55 10^6/uL (4.5-5.90); White Blood Cell 5.8 10^3/uL (4.4-10.8)
[2021-02-04 04:25] LABS: Calcium 8.1 mg/dL (8.5-10.1)
[2021-02-04 04:30] LABS: BUN/Creatinine Ratio 36.9
[2021-02-04 04:37] LABS: Potassium 2.8 mmol/L (3.5-5.1)
[2021-02-04] MEDS: BUMETANIDE 2.5mg/10ml (0.25 mg/ml) INJ IV SCH ×2 (05:08→18:03)
[2021-02-04] MEDS: SODIUM BICARBONATE 50ML VIAL 75 ML in D5W 5% 1,000 ML IV SCH (06:18)
[2021-02-04] MEDS: IPRATROPIUM BROM 0.5 MG/2.5ML INH SOL NEB SCH ×3 (06:29→22:29)
[2021-02-04] MEDS: ACETYLCYSTEINE 20%(200MG/ML) SOL 4ML NEB SCH ×3 (06:31→22:29)
[2021-02-04] MEDS: fentaNYL Drip 2500mCg/250mlNS 250 ML IV SCH ×2 (06:44→16:53)
[2021-02-04] MEDS: ALBUTEROL SULF 2.5 MG/0.5ML(0.5%) NEB SOLN NEB SCH ×3 (07:43→22:29)
[2021-02-04] MEDS: MEROPENEM 1GM IVPB 100 ML IV SCH ×2 (09:15→22:01)
[2021-02-04] MEDS: CHOLECALCIFEROL (VITD3) 2,000 UNIT CAP/TAB PO SCH (09:16)
[2021-02-04] MEDS: ASCORBIC ACID 1,000 MG TAB PO SCH (09:16)
[2021-02-04] MEDS: DexAMETHasone SOD PHOS 10MG/1ML VIAL INJ IV SCH (09:16)
[2021-02-04] MEDS: PANTOPRAZOLE 40 MG/10 ML VIAL INJ IV SCH (09:17)
[2021-02-04] MEDS: ENOXAPARIN SOD 40 MG/0.4 ML SYRINGE SC SCH ×2 (09:17→22:00)
[2021-02-04] MEDS: METOCLOPRAMIDE HCL 5MG/ml INJ 2ml VIAL IV SCH (09:18)
[2021-02-04] MEDS: ZINC SULFATE 220mg CAP or TAB PO SCH (09:18)
[2021-02-04] MEDS: POTASSIUM CHL 20MEQ/100ML 100 ML IV SCH ×4 (09:22→20:30)
[2021-02-04] MEDS: ATRACURIUM BESYLATE 1,000 MG in D5W 5% 150 ML IV SCH (09:47)
[2021-02-04] MEDS ORDERED: SODIUM BICARBONATE 50ML VIAL 75 ML in D5W 5% 1,000 ML IV SCH (11:30)
[2021-02-04] MEDS: DOPamine 1600MCG/ML D5W 250 ML IV SCH (11:58)
[2021-02-04] MEDS ORDERED: POTASSIUM CHL 20MEQ/100ML 100 ML IV ONE (13:26)
[2021-02-04] MEDS: NOREPINEPHRINE 8 MG/250ML KIT 250 ML IV SCH (15:36)
[2021-02-04 16:13] LABS: Calcium 8.4 mg/dL (8.5-10.1); Potassium 3.3 mmol/L (3.5-5.1)
[2021-02-04 16:16] LABS: BUN/Creatinine Ratio 39.4
[2021-02-05] VITALS (92 sets, daily range): BP systolic 99–152; BP diastolic 45–90
[2021-02-05] MEDS: MIDAZOLAM DRIP 50 mg/50mL 50 ML IV SCH ×8 (01:55→21:46)
[2021-02-05] MEDS: fentaNYL Drip 2500mCg/250mlNS 250 ML IV SCH ×4 (02:04→21:45)
[2021-02-05] MEDS: ATRACURIUM BESYLATE 1,000 MG in D5W 5% 150 ML IV SCH ×2 (03:25→21:03)
[2021-02-05 05:15] LABS: Basophils # (auto) 0 10 ^3/uL (0-0.2); Basophils % (auto) 0.6 % (0.0-2.0); Eosinophils # (auto) 0.2 10 ^3/uL (0-0.8); Eosinophils % (auto) 3.8 % (0.0-7.0); Hematocrit 34.1 % (41.0-53.0); Hemoglobin 11.6 g/dL (13.5-17.5); Lymphocytes # (auto) 0.9 10 ^3/uL (0.4-5.4); Lymphocytes % (auto) 15.7 % (10.0-50.0); Mean Corpuscular Hemoglobin 29.1 pg (28.0-32.0); Mean Corpuscular Hgb Conc. 33.9 g/dL (32.0-36.0); Monocytes # (auto) 0.7 10 ^3/uL (0-1.3); Monocytes % (auto) 11.3 % (0.0-12.0); Neutrophils % (auto) 68.6 % (37.0-80.0); Red Blood Cells 3.97 10^6/uL (4.5-5.90); White Blood Cell 5.9 10^3/uL (4.4-10.8)
[2021-02-05 05:38] LABS: Calcium 8.8 mg/dL (8.5-10.1); Potassium 3.7 mmol/L (3.5-5.1)
[2021-02-05 05:42] LABS: BUN/Creatinine Ratio 37.3
[2021-02-05] MEDS: BUMETANIDE 2.5mg/10ml (0.25 mg/ml) INJ IV SCH ×2 (06:05→17:11)
[2021-02-05] MEDS: PANTOPRAZOLE 40 MG/10 ML VIAL INJ IV SCH (07:49)
[2021-02-05] MEDS: DexAMETHasone SOD PHOS 10MG/1ML VIAL INJ IV SCH (07:49)
[2021-02-05] MEDS: PROPOFOL 100 ML IV SCH ×7 (07:49→19:36)
[2021-02-05] MEDS: ZINC SULFATE 220mg CAP or TAB PO SCH (07:50)
[2021-02-05] MEDS: ENOXAPARIN SOD 40 MG/0.4 ML SYRINGE SC SCH ×2 (07:50→22:04)
[2021-02-05] MEDS: ASCORBIC ACID 1,000 MG TAB PO SCH (07:50)
[2021-02-05] MEDS: CHOLECALCIFEROL (VITD3) 2,000 UNIT CAP/TAB PO SCH (07:51)
[2021-02-05] MEDS: POTASSIUM EFFERVESENT TAB 25 MEQ GT SCH (07:51)
[2021-02-05] MEDS: METOCLOPRAMIDE HCL 5MG/ml INJ 2ml VIAL IV SCH (08:06)
[2021-02-05] MEDS: MEROPENEM 1GM IVPB 100 ML IV SCH ×2 (08:06→22:55)
[2021-02-05] MEDS ORDERED: GENTAMICIN SULFATE 240 MG in D5W 5% 100 ML IV ONE (14:00)
[2021-02-05] MEDS: NOREPINEPHRINE 8 MG/250ML KIT 250 ML IV SCH (15:36)
[2021-02-05] MEDS: ACETYLCYSTEINE 20%(200MG/ML) SOL 4ML NEB SCH (18:26)
[2021-02-05] MEDS: ALBUTEROL SULF 2.5 MG/0.5ML(0.5%) NEB SOLN NEB SCH (18:27)
[2021-02-05] MEDS: IPRATROPIUM BROM 0.5 MG/2.5ML INH SOL NEB SCH (18:27)
[2021-02-05] MEDS: DOPamine 1600MCG/ML D5W 250 ML IV SCH (19:14)
[2021-02-06] VITALS (97 sets, daily range): BP systolic 100–139; BP diastolic 50–79
[2021-02-06] MEDS: PROPOFOL 100 ML IV SCH ×4 (02:31→15:37)
[2021-02-06] MEDS: MIDAZOLAM DRIP 50 mg/50mL 50 ML IV SCH ×2 (02:32→12:22)
[2021-02-06 04:01] LABS: Hemoglobin 11.4 g/dL (13.5-17.5); Mean Corpuscular Hemoglobin 28.6 pg (28.0-32.0); Mean Corpuscular Hgb Conc. 33.5 g/dL (32.0-36.0); Mean Corpuscular Volume 85.3 fL (80.0-100.0); Red Blood Cells 3.98 10^6/uL (4.5-5.90); Red Cell Distribution Width 14.9 % (11.8-14.3); White Blood Cell 4.8 10^3/uL (4.4-10.8)
[2021-02-06 04:17] LABS: Calcium 8.6 mg/dL (8.5-10.1); Potassium 3.2 mmol/L (3.5-5.1)
[2021-02-06 04:18] LABS: Basophils % (manual) 0 (0.0-2.0); Blast Cells 0; Myelocytes % 0; Promyelocytes % 0; Reactive Lymphocytes 0
[2021-02-06 04:19] LABS: BUN/Creatinine Ratio 37.6
[2021-02-06] MEDS: DOPamine 1600MCG/ML D5W 250 ML IV SCH ×2 (05:51→19:04)
[2021-02-06] MEDS: fentaNYL Drip 2500mCg/250mlNS 250 ML IV SCH ×2 (05:53→13:39)
[2021-02-06] MEDS: BUMETANIDE 2.5mg/10ml (0.25 mg/ml) INJ IV SCH ×2 (05:53→20:03)
[2021-02-06] MEDS: IPRATROPIUM BROM 0.5 MG/2.5ML INH SOL NEB SCH ×3 (06:39→22:16)
[2021-02-06] MEDS: ALBUTEROL SULF 2.5 MG/0.5ML(0.5%) NEB SOLN NEB SCH ×3 (06:40→22:16)
[2021-02-06] MEDS: ACETYLCYSTEINE 20%(200MG/ML) SOL 4ML NEB SCH ×3 (06:40→22:16)
[2021-02-06 07:08] LABS: Band Neutrophils % (manual) 3; Eosinophils % (manual) 14 (0-7); Lymphocytes % (manual) 19 (10.0-50.0); Metamyelocytes % 1; Monocytes % (manual) 14 (0-12)
[2021-02-06] MEDS: POTASSIUM EFFERVESENT TAB 25 MEQ GT SCH (12:16)
[2021-02-06] MEDS: DexAMETHasone SOD PHOS 10MG/1ML VIAL INJ IV SCH (12:16)
[2021-02-06] MEDS: PANTOPRAZOLE 40 MG/10 ML VIAL INJ IV SCH (12:17)
[2021-02-06] MEDS: MEROPENEM 1GM IVPB 100 ML IV SCH ×2 (12:17→22:02)
[2021-02-06] MEDS: ZINC SULFATE 220mg CAP or TAB PO SCH (12:18)
[2021-02-06] MEDS: METOCLOPRAMIDE HCL 5MG/ml INJ 2ml VIAL IV SCH (12:19)
[2021-02-06] MEDS: ASCORBIC ACID 1,000 MG TAB PO SCH (12:20)
[2021-02-06] MEDS: CHOLECALCIFEROL (VITD3) 2,000 UNIT CAP/TAB PO SCH (12:20)
[2021-02-06] MEDS: ENOXAPARIN SOD 40 MG/0.4 ML SYRINGE SC SCH ×2 (12:20→22:03)
[2021-02-06] MEDS: ATRACURIUM BESYLATE 1,000 MG in D5W 5% 150 ML IV SCH (14:41)
[2021-02-06] MEDS: POTASSIUM CHL 20MEQ/100ML 100 ML IV SCH ×2 (15:36→20:01)
[2021-02-06] MEDS: NOREPINEPHRINE 8 MG/250ML KIT 250 ML IV SCH (15:36)
[2021-02-07] VITALS (103 sets, daily range): BP systolic 101–146; BP diastolic 42–79
[2021-02-07 02:51] LABS: Hematocrit 31.4 % (41.0-53.0); Hemoglobin 10.6 g/dL (13.5-17.5); Mean Corpuscular Hemoglobin 28.9 pg (28.0-32.0); Mean Corpuscular Hgb Conc. 33.9 g/dL (32.0-36.0); Mean Corpuscular Volume 85.4 fL (80.0-100.0); Red Blood Cells 3.67 10^6/uL (4.5-5.90); Red Cell Distribution Width 14.7 % (11.8-14.3); White Blood Cell 4.7 10^3/uL (4.4-10.8)
[2021-02-07 03:20] LABS: Basophils % (manual) 0 (0.0-2.0); Blast Cells 0; Metamyelocytes % 0; Myelocytes % 0; Potassium 3.8 mmol/L (3.5-5.1); Promyelocytes % 0; Reactive Lymphocytes 0
[2021-02-07 03:24] LABS: BUN/Creatinine Ratio 33.8
[2021-02-07 04:02] LABS: Band Neutrophils % (manual) 6; Eosinophils % (manual) 22 (0-7); Lymphocytes % (manual) 16 (10.0-50.0); Monocytes % (manual) 4 (0-12)
[2021-02-07] MEDS: BUMETANIDE 2.5mg/10ml (0.25 mg/ml) INJ IV SCH ×2 (06:03→17:19)
[2021-02-07] MEDS ORDERED: POTASSIUM CHL 20MEQ/100ML 100 ML IV ONE (06:15)
[2021-02-07] MEDS: IPRATROPIUM BROM 0.5 MG/2.5ML INH SOL NEB SCH ×3 (07:53→22:01)
[2021-02-07] MEDS: ACETYLCYSTEINE 20%(200MG/ML) SOL 4ML NEB SCH (07:53)
[2021-02-07] MEDS: ALBUTEROL SULF 2.5 MG/0.5ML(0.5%) NEB SOLN NEB SCH ×3 (07:53→22:02)
[2021-02-07] MEDS: PROPOFOL 100 ML IV SCH ×6 (08:17→19:00)
[2021-02-07] MEDS: ATRACURIUM BESYLATE 1,000 MG in D5W 5% 150 ML IV SCH (08:19)
[2021-02-07] MEDS: METOCLOPRAMIDE HCL 5MG/ml INJ 2ml VIAL IV SCH (10:11)
[2021-02-07] MEDS: POTASSIUM EFFERVESENT TAB 25 MEQ GT SCH (10:11)
[2021-02-07] MEDS: ENOXAPARIN SOD 40 MG/0.4 ML SYRINGE SC SCH ×2 (10:12→22:02)
[2021-02-07] MEDS: ASCORBIC ACID 1,000 MG TAB PO SCH (10:12)
[2021-02-07] MEDS: PANTOPRAZOLE 40 MG/10 ML VIAL INJ IV SCH (10:12)
[2021-02-07] MEDS: ZINC SULFATE 220mg CAP or TAB PO SCH (10:12)
[2021-02-07] MEDS: CHOLECALCIFEROL (VITD3) 2,000 UNIT CAP/TAB PO SCH (10:12)
[2021-02-07] MEDS: DexAMETHasone SOD PHOS 10MG/1ML VIAL INJ IV SCH (10:12)
[2021-02-07] MEDS: MIDAZOLAM DRIP 50 mg/50mL 50 ML IV SCH ×4 (10:19→22:30)
[2021-02-07] MEDS: MEROPENEM 1GM IVPB 100 ML IV SCH (10:25)
[2021-02-07] MEDS ORDERED: GENTAMICIN SULFATE 240 MG in D5W 5% 100 ML IV ONE (13:00)
[2021-02-07] MEDS: fentaNYL Drip 2500mCg/250mlNS 250 ML IV SCH ×2 (13:22→20:00)
[2021-02-07] MEDS: DOPamine 1600MCG/ML D5W 250 ML IV SCH (13:24)
[2021-02-07] MEDS: NOREPINEPHRINE 8 MG/250ML KIT 250 ML IV SCH (15:36)
[2021-02-08] VITALS (101 sets, daily range): BP systolic 95–139; BP diastolic 46–76
[2021-02-08] MEDS: Nepro With Carb Steady 1 Liter Bottle GT SCH (01:00)
[2021-02-08] MEDS: ATRACURIUM BESYLATE 1,000 MG in D5W 5% 150 ML IV SCH ×2 (01:57→19:35)
[2021-02-08 04:49] LABS: Basophils # (auto) 0.1 10 ^3/uL (0-0.2); Basophils % (auto) 1.7 % (0.0-2.0); Eosinophils # (auto) 0.5 10 ^3/uL (0-0.8); Eosinophils % (auto) 9.9 % (0.0-7.0); Hematocrit 32.5 % (41.0-53.0); Hemoglobin 10.9 g/dL (13.5-17.5); Lymphocytes # (auto) 0.9 10 ^3/uL (0.4-5.4); Lymphocytes % (auto) 16.3 % (10.0-50.0); Mean Corpuscular Hgb Conc. 33.5 g/dL (32.0-36.0); Mean Corpuscular Volume 86.5 fL (80.0-100.0); Monocytes # (auto) 0.8 10 ^3/uL (0-1.3); Monocytes % (auto) 15.8 % (0.0-12.0); Neutrophils % (auto) 56.3 % (37.0-80.0); Nucleated Red Blood Cells % 0.1 %; Red Blood Cells 3.76 10^6/uL (4.5-5.90); Red Cell Distribution Width 14.7 % (11.8-14.3); White Blood Cell 5.4 10^3/uL (4.4-10.8)
[2021-02-08 05:17] LABS: Potassium 4.1 mmol/L (3.5-5.1)
[2021-02-08 05:23] LABS: BUN/Creatinine Ratio 33.3; Calcium 9.3 mg/dL (8.5-10.1)
[2021-02-08] MEDS: BUMETANIDE 2.5mg/10ml (0.25 mg/ml) INJ IV SCH ×2 (06:00→17:33)
[2021-02-08] MEDS: ALBUTEROL SULF 2.5 MG/0.5ML(0.5%) NEB SOLN NEB SCH ×3 (06:57→18:40)
[2021-02-08] MEDS: IPRATROPIUM BROM 0.5 MG/2.5ML INH SOL NEB SCH ×3 (06:58→18:40)
[2021-02-08] MEDS: PROPOFOL 100 ML IV SCH ×7 (07:13→23:00)
[2021-02-08] MEDS: DOPamine 1600MCG/ML D5W 250 ML IV SCH ×2 (07:40→21:58)
[2021-02-08] MEDS: POTASSIUM EFFERVESENT TAB 25 MEQ GT SCH (09:37)
[2021-02-08] MEDS: METOCLOPRAMIDE HCL 5MG/ml INJ 2ml VIAL IV SCH (09:38)
[2021-02-08] MEDS: PANTOPRAZOLE 40 MG/10 ML VIAL INJ IV SCH (09:38)
[2021-02-08] MEDS: ENOXAPARIN SOD 40 MG/0.4 ML SYRINGE SC SCH ×2 (09:38→21:58)
[2021-02-08] MEDS: ZINC SULFATE 220mg CAP or TAB PO SCH (09:38)
[2021-02-08] MEDS: ASCORBIC ACID 1,000 MG TAB PO SCH (09:39)
[2021-02-08] MEDS: CHOLECALCIFEROL (VITD3) 2,000 UNIT CAP/TAB PO SCH (09:39)
[2021-02-08] MEDS: MIDAZOLAM DRIP 50 mg/50mL 50 ML IV SCH ×4 (10:28→22:00)
[2021-02-08] MEDS: fentaNYL Drip 2500mCg/250mlNS 250 ML IV SCH ×2 (12:25→21:00)
[2021-02-08] MEDS: ROCURONIUM 10MG/ML 10ML VIAL IV PRN (13:01)
[2021-02-08] MEDS: NOREPINEPHRINE 8 MG/250ML KIT 250 ML IV SCH (15:36)
[2021-02-09] VITALS (104 sets, daily range): BP systolic 89–124; BP diastolic 41–85
[2021-02-09] MEDS: MIDAZOLAM DRIP 50 mg/50mL 50 ML IV SCH ×4 (01:49→21:37)
[2021-02-09] MEDS: PROPOFOL 100 ML IV SCH ×5 (01:50→22:14)
[2021-02-09 04:59] LABS: Basophils # (auto) 0.1 10 ^3/uL (0-0.2); Eosinophils # (auto) 0.9 10 ^3/uL (0-0.8); Eosinophils % (auto) 14.3 % (0.0-7.0); Hematocrit 31.2 % (41.0-53.0); Hemoglobin 10.5 g/dL (13.5-17.5); Lymphocytes % (auto) 15.8 % (10.0-50.0); Mean Corpuscular Hemoglobin 29.3 pg (28.0-32.0); Mean Corpuscular Hgb Conc. 33.7 g/dL (32.0-36.0); Mean Corpuscular Volume 87.1 fL (80.0-100.0); Monocytes # (auto) 0.6 10 ^3/uL (0-1.3); Monocytes % (auto) 9.7 % (0.0-12.0); Neutrophils # (auto) 3.6 10 ^3/uL (1.6-8.6); Neutrophils % (auto) 59.2 % (37.0-80.0); Nucleated Red Blood Cells % 0.2 %; Red Blood Cells 3.59 10^6/uL (4.5-5.90); Red Cell Distribution Width 15.5 % (11.8-14.3); White Blood Cell 6.1 10^3/uL (4.4-10.8)
[2021-02-09 05:12] LABS: BUN/Creatinine Ratio 29.9; Calcium 9.2 mg/dL (8.5-10.1); Potassium 3.8 mmol/L (3.5-5.1)
[2021-02-09] MEDS: BUMETANIDE 2.5mg/10ml (0.25 mg/ml) INJ IV SCH ×2 (05:49→18:09)
[2021-02-09] MEDS: fentaNYL Drip 2500mCg/250mlNS 250 ML IV SCH ×2 (05:51→20:00)
[2021-02-09] MEDS: IPRATROPIUM BROM 0.5 MG/2.5ML INH SOL NEB SCH ×3 (06:20→22:06)
[2021-02-09] MEDS: ALBUTEROL SULF 2.5 MG/0.5ML(0.5%) NEB SOLN NEB SCH ×3 (06:20→22:06)
[2021-02-09] MEDS: POTASSIUM EFFERVESENT TAB 25 MEQ GT SCH (08:05)
[2021-02-09] MEDS: METOCLOPRAMIDE HCL 5MG/ml INJ 2ml VIAL IV SCH (08:05)
[2021-02-09] MEDS: PANTOPRAZOLE 40 MG/10 ML VIAL INJ IV SCH (08:05)
[2021-02-09] MEDS: ZINC SULFATE 220mg CAP or TAB PO SCH (08:06)
[2021-02-09] MEDS: ATRACURIUM BESYLATE 1,000 MG in D5W 5% 150 ML IV SCH (08:06)
[2021-02-09] MEDS: CHOLECALCIFEROL (VITD3) 2,000 UNIT CAP/TAB PO SCH (08:06)
[2021-02-09] MEDS: ASCORBIC ACID 1,000 MG TAB PO SCH (08:06)
[2021-02-09] MEDS: ENOXAPARIN SOD 40 MG/0.4 ML SYRINGE SC SCH ×2 (08:06→20:01)
[2021-02-09] MEDS: NOREPINEPHRINE 8 MG/250ML KIT 250 ML IV SCH (13:58)
[2021-02-09] MEDS ORDERED: GENTAMICIN SULFATE 240 MG in D5W 5% 100 ML IV ONE (14:00)
[2021-02-09] MEDS: DOPamine 1600MCG/ML D5W 250 ML IV SCH (20:32)
[2021-02-10] VITALS (105 sets, daily range): BP systolic 88–132; BP diastolic 45–70
[2021-02-10] MEDS: PROPOFOL 100 ML IV SCH ×11 (00:22→22:01)
[2021-02-10] MEDS: MIDAZOLAM DRIP 50 mg/50mL 50 ML IV SCH ×6 (01:23→22:01)
[2021-02-10] MEDS: BUMETANIDE 2.5mg/10ml (0.25 mg/ml) INJ IV SCH ×2 (04:41→17:40)
[2021-02-10] MEDS: fentaNYL Drip 2500mCg/250mlNS 250 ML IV SCH ×3 (06:01→22:01)
[2021-02-10] MEDS: ATRACURIUM BESYLATE 1,000 MG in D5W 5% 150 ML IV SCH (06:51)
[2021-02-10] MEDS: IPRATROPIUM BROM 0.5 MG/2.5ML INH SOL NEB SCH ×3 (07:31→22:14)
[2021-02-10] MEDS: ALBUTEROL SULF 2.5 MG/0.5ML(0.5%) NEB SOLN NEB SCH ×3 (07:31→22:14)
[2021-02-10 07:49] LABS: Albumin 2.4 g/dL (3.4-5.0); BUN/Creatinine Ratio 24.6; Calcium 8.9 mg/dL (8.5-10.1); Potassium 4.1 mmol/L (3.5-5.1)
[2021-02-10 07:51] LABS: Hematocrit 29.7 % (41.0-53.0); Hemoglobin 10.1 g/dL (13.5-17.5); Lymphocytes % (auto) 17.4 % (10.0-50.0); Mean Corpuscular Hemoglobin 29.3 pg (28.0-32.0); Mean Corpuscular Hgb Conc. 33.9 g/dL (32.0-36.0); Mean Corpuscular Volume 86.6 fL (80.0-100.0); Nucleated Red Blood Cells % 0.1 %; Red Blood Cells 3.43 10^6/uL (4.5-5.90); Red Cell Distribution Width 15.1 % (11.8-14.3); White Blood Cell 5.9 10^3/uL (4.4-10.8)
[2021-02-10 07:52] LABS: Bilirubin, Total 0.5 mg/dL (0.2-1.0); Eosinophils % (auto) 14.2 % (0.0-7.0); Neutrophils % (auto) 52.7 % (37.0-80.0); Total Protein 6.2 g/dL (6.4-8.2)
[2021-02-10 07:53] LABS: Basophils # (auto) 0.1 10 ^3/uL (0-0.2); Basophils % (auto) 1.6 % (0.0-2.0); Eosinophils # (auto) 0.8 10 ^3/uL (0-0.8); Monocytes # (auto) 0.9 10 ^3/uL (0-1.3); Monocytes % (auto) 14.1 % (0.0-12.0); Neutrophils # (auto) 3.1 10 ^3/uL (1.6-8.6)
[2021-02-10] MEDS: DOPamine 1600MCG/ML D5W 250 ML IV SCH (08:35)
[2021-02-10] MEDS: PANTOPRAZOLE 40 MG/10 ML VIAL INJ IV SCH (10:00)
[2021-02-10] MEDS: METOCLOPRAMIDE HCL 5MG/ml INJ 2ml VIAL IV SCH (10:00)
[2021-02-10] MEDS: ZINC SULFATE 220mg CAP or TAB PO SCH (10:00)
[2021-02-10] MEDS: ENOXAPARIN SOD 40 MG/0.4 ML SYRINGE SC SCH ×2 (10:00→21:58)
[2021-02-10] MEDS: POTASSIUM EFFERVESENT TAB 25 MEQ GT SCH (10:00)
[2021-02-10] MEDS: CHOLECALCIFEROL (VITD3) 2,000 UNIT CAP/TAB PO SCH (10:00)
[2021-02-10] MEDS: ASCORBIC ACID 1,000 MG TAB PO SCH (10:00)
[2021-02-10] MEDS: NOREPINEPHRINE 8 MG/250ML KIT 250 ML IV SCH (15:36)
[2021-02-11] VITALS (108 sets, daily range): BP systolic 106–135; BP diastolic 50–73
[2021-02-11] MEDS: ATRACURIUM BESYLATE 1,000 MG in D5W 5% 150 ML IV SCH ×2 (00:29→17:33)
[2021-02-11 04:31] LABS: Basophils # (auto) 0.1 10 ^3/uL (0-0.2); Basophils % (auto) 1.5 % (0.0-2.0); Eosinophils # (auto) 0.8 10 ^3/uL (0-0.8); Eosinophils % (auto) 12.8 % (0.0-7.0); Hematocrit 30.8 % (41.0-53.0); Hemoglobin 10.5 g/dL (13.5-17.5); Lymphocytes # (auto) 0.9 10 ^3/uL (0.4-5.4); Lymphocytes % (auto) 15.1 % (10.0-50.0); Mean Corpuscular Hemoglobin 29.5 pg (28.0-32.0); Mean Corpuscular Hgb Conc. 34.1 g/dL (32.0-36.0); Mean Corpuscular Volume 86.8 fL (80.0-100.0); Monocytes # (auto) 0.8 10 ^3/uL (0-1.3); Monocytes % (auto) 13.8 % (0.0-12.0); Neutrophils # (auto) 3.3 10 ^3/uL (1.6-8.6); Neutrophils % (auto) 56.8 % (37.0-80.0); Nucleated Red Blood Cells % 0.1 %; Red Blood Cells 3.55 10^6/uL (4.5-5.90); Red Cell Distribution Width 15.2 % (11.8-14.3); White Blood Cell 5.9 10^3/uL (4.4-10.8)
[2021-02-11 05:18] LABS: Calcium 8.8 mg/dL (8.5-10.1); Potassium 4.4 mmol/L (3.5-5.1)
[2021-02-11] MEDS: DOPamine 1600MCG/ML D5W 250 ML IV SCH ×2 (05:59→17:33)
[2021-02-11] MEDS: BUMETANIDE 2.5mg/10ml (0.25 mg/ml) INJ IV SCH ×2 (05:59→17:32)
[2021-02-11] MEDS: MIDAZOLAM DRIP 50 mg/50mL 50 ML IV SCH ×4 (06:00→15:30)
[2021-02-11] MEDS: PROPOFOL 100 ML IV SCH ×7 (06:00→17:32)
[2021-02-11] MEDS: ALBUTEROL SULF 2.5 MG/0.5ML(0.5%) NEB SOLN NEB SCH ×3 (07:41→22:31)
[2021-02-11] MEDS: IPRATROPIUM BROM 0.5 MG/2.5ML INH SOL NEB SCH ×3 (07:41→22:31)
[2021-02-11] MEDS: CHOLECALCIFEROL (VITD3) 2,000 UNIT CAP/TAB PO SCH (09:37)
[2021-02-11] MEDS: METOCLOPRAMIDE HCL 5MG/ml INJ 2ml VIAL IV SCH (09:37)
[2021-02-11] MEDS: PANTOPRAZOLE 40 MG/10 ML VIAL INJ IV SCH (09:37)
[2021-02-11] MEDS: ASCORBIC ACID 1,000 MG TAB PO SCH (09:37)
[2021-02-11] MEDS: ZINC SULFATE 220mg CAP or TAB PO SCH (09:37)
[2021-02-11] MEDS: POTASSIUM EFFERVESENT TAB 25 MEQ GT SCH (10:00)
[2021-02-11] MEDS: ENOXAPARIN SOD 40 MG/0.4 ML SYRINGE SC SCH ×2 (11:01→21:43)
[2021-02-11] MEDS ORDERED: GENTAMICIN PER PHARMACY 0 ML IV SCH (11:45)
[2021-02-11] MEDS: fentaNYL Drip 2500mCg/250mlNS 250 ML IV SCH (11:48)
[2021-02-11] MEDS ORDERED: GENTAMICIN SULFATE 240 MG in D5W 5% 100 ML IV ONE (15:00)
[2021-02-11] MEDS: NOREPINEPHRINE 8 MG/250ML KIT 250 ML IV SCH (15:19)
[2021-02-12] VITALS (100 sets, daily range): BP systolic 103–152; BP diastolic 42–93
[2021-02-12] MEDS: fentaNYL Drip 2500mCg/250mlNS 250 ML IV SCH ×3 (04:22→15:30)
[2021-02-12 04:35] LABS: Basophils # (auto) 0.1 10 ^3/uL (0-0.2); Basophils % (auto) 2.2 % (0.0-2.0); Eosinophils # (auto) 0.7 10 ^3/uL (0-0.8); Eosinophils % (auto) 11.3 % (0.0-7.0); Hematocrit 31.8 % (41.0-53.0); Hemoglobin 10.7 g/dL (13.5-17.5); Lymphocytes # (auto) 0.8 10 ^3/uL (0.4-5.4); Lymphocytes % (auto) 13.4 % (10.0-50.0); Mean Corpuscular Hemoglobin 29.1 pg (28.0-32.0); Mean Corpuscular Hgb Conc. 33.5 g/dL (32.0-36.0); Mean Corpuscular Volume 86.9 fL (80.0-100.0); Monocytes # (auto) 0.7 10 ^3/uL (0-1.3); Monocytes % (auto) 12.1 % (0.0-12.0); Neutrophils # (auto) 3.7 10 ^3/uL (1.6-8.6); Nucleated Red Blood Cells % 0.1 %; Red Blood Cells 3.66 10^6/uL (4.5-5.90); Red Cell Distribution Width 14.9 % (11.8-14.3); White Blood Cell 6.1 10^3/uL (4.4-10.8)
[2021-02-12 04:53] LABS: Calcium 8.9 mg/dL (8.5-10.1); Potassium 3.3 mmol/L (3.5-5.1)
[2021-02-12 04:59] LABS: Albumin 2.7 g/dL (3.4-5.0); Bilirubin, Total 0.7 mg/dL (0.2-1.0); Total Protein 6.9 g/dL (6.4-8.2)
[2021-02-12] MEDS: BUMETANIDE 2.5mg/10ml (0.25 mg/ml) INJ IV SCH ×2 (07:11→17:57)
[2021-02-12] MEDS: PROPOFOL 100 ML IV SCH ×5 (07:23→18:16)
[2021-02-12] MEDS: IPRATROPIUM BROM 0.5 MG/2.5ML INH SOL NEB SCH ×3 (10:14→22:27)
[2021-02-12] MEDS: ALBUTEROL SULF 2.5 MG/0.5ML(0.5%) NEB SOLN NEB SCH ×3 (10:14→22:27)
[2021-02-12] MEDS: METOCLOPRAMIDE HCL 5MG/ml INJ 2ml VIAL IV SCH (10:23)
[2021-02-12] MEDS: CHOLECALCIFEROL (VITD3) 2,000 UNIT CAP/TAB PO SCH (10:23)
[2021-02-12] MEDS: ZINC SULFATE 220mg CAP or TAB PO SCH (10:23)
[2021-02-12] MEDS: POTASSIUM EFFERVESENT TAB 25 MEQ GT SCH (10:23)
[2021-02-12] MEDS: ASCORBIC ACID 1,000 MG TAB PO SCH (10:23)
[2021-02-12] MEDS: PANTOPRAZOLE 40 MG/10 ML VIAL INJ IV SCH (10:23)
[2021-02-12] MEDS: DOPamine 1600MCG/ML D5W 250 ML IV SCH (10:24)
[2021-02-12] MEDS: NOREPINEPHRINE 8 MG/250ML KIT 250 ML IV SCH (10:24)
[2021-02-12] MEDS: ATRACURIUM BESYLATE 1,000 MG in D5W 5% 150 ML IV SCH (10:25)
[2021-02-12] MEDS: ENOXAPARIN SOD 60 MG/0.6 ML SYRINGE SC SCH ×2 (10:36→23:16)
[2021-02-12] MEDS: POTASSIUM CHL 20MEQ/100ML 100 ML IV SCH ×2 (12:21→14:11)
[2021-02-12] MEDS: MIDAZOLAM DRIP 50 mg/50mL 50 ML IV SCH ×2 (14:56→18:17)
[2021-02-13] VITALS (96 sets, daily range): BP systolic 105–185; BP diastolic 55–102
[2021-02-13 04:29] LABS: Basophils # (auto) 0.1 10 ^3/uL (0-0.2); Basophils % (auto) 1.3 % (0.0-2.0); Eosinophils # (auto) 0.7 10 ^3/uL (0-0.8); Eosinophils % (auto) 10.1 % (0.0-7.0); Hematocrit 30.7 % (41.0-53.0); Hemoglobin 10.6 g/dL (13.5-17.5); Lymphocytes # (auto) 0.7 10 ^3/uL (0.4-5.4); Lymphocytes % (auto) 9.8 % (10.0-50.0); Mean Corpuscular Hemoglobin 29.8 pg (28.0-32.0); Mean Corpuscular Hgb Conc. 34.6 g/dL (32.0-36.0); Monocytes # (auto) 0.8 10 ^3/uL (0-1.3); Neutrophils # (auto) 4.6 10 ^3/uL (1.6-8.6); Neutrophils % (auto) 66.8 % (37.0-80.0); Nucleated Red Blood Cells % 0.1 %; Red Blood Cells 3.56 10^6/uL (4.5-5.90); Red Cell Distribution Width 14.9 % (11.8-14.3); White Blood Cell 6.9 10^3/uL (4.4-10.8)
[2021-02-13] MEDS: DOPamine 1600MCG/ML D5W 250 ML IV SCH ×2 (04:35→19:23)
[2021-02-13] MEDS: MIDAZOLAM DRIP 50 mg/50mL 50 ML IV SCH ×4 (04:36→21:45)
[2021-02-13] MEDS: PROPOFOL 100 ML IV SCH ×7 (04:36→23:28)
[2021-02-13 04:55] LABS: Calcium 8.9 mg/dL (8.5-10.1); Potassium 3.3 mmol/L (3.5-5.1)
[2021-02-13 04:57] LABS: BUN/Creatinine Ratio 17.4
[2021-02-13] MEDS: ATRACURIUM BESYLATE 1,000 MG in D5W 5% 150 ML IV SCH (05:23)
[2021-02-13] MEDS: BUMETANIDE 2.5mg/10ml (0.25 mg/ml) INJ IV SCH ×2 (06:26→19:21)
[2021-02-13] MEDS: IPRATROPIUM BROM 0.5 MG/2.5ML INH SOL NEB SCH ×3 (06:42→22:28)
[2021-02-13] MEDS: ALBUTEROL SULF 2.5 MG/0.5ML(0.5%) NEB SOLN NEB SCH ×3 (06:42→22:28)
[2021-02-13] MEDS: PANTOPRAZOLE 40 MG/10 ML VIAL INJ IV SCH (08:59)
[2021-02-13] MEDS: ZINC SULFATE 220mg CAP or TAB PO SCH (08:59)
[2021-02-13] MEDS: CHOLECALCIFEROL (VITD3) 2,000 UNIT CAP/TAB PO SCH (08:59)
[2021-02-13] MEDS: ASCORBIC ACID 1,000 MG TAB PO SCH (08:59)
[2021-02-13] MEDS: ENOXAPARIN SOD 60 MG/0.6 ML SYRINGE SC SCH ×2 (08:59→22:19)
[2021-02-13] MEDS: METOCLOPRAMIDE HCL 5MG/ml INJ 2ml VIAL IV SCH (09:00)
[2021-02-13] MEDS: fentaNYL Drip 2500mCg/250mlNS 250 ML IV SCH ×2 (09:03→19:25)
[2021-02-13] MEDS: POTASSIUM CHL 20MEQ/100ML 100 ML IV SCH ×2 (11:55→14:44)
[2021-02-13] MEDS: POTASSIUM EFFERVESENT TAB 25 MEQ GT SCH (11:55)
[2021-02-13] MEDS ORDERED: GENTAMICIN SULFATE 240 MG in D5W 5% 100 ML IV ONE (15:00)
[2021-02-13] MEDS: NOREPINEPHRINE 8 MG/250ML KIT 250 ML IV SCH (15:36)
[2021-02-14] VITALS (96 sets, daily range): BP systolic 97–180; BP diastolic 49–102
[2021-02-14] MEDS: DOPamine 1600MCG/ML D5W 250 ML IV SCH ×2 (00:34→06:35)
[2021-02-14] MEDS: BUMETANIDE 2.5mg/10ml (0.25 mg/ml) INJ IV SCH ×2 (05:24→18:26)
[2021-02-14] MEDS: ALBUTEROL SULF 2.5 MG/0.5ML(0.5%) NEB SOLN NEB SCH ×3 (06:19→22:24)
[2021-02-14] MEDS: IPRATROPIUM BROM 0.5 MG/2.5ML INH SOL NEB SCH ×3 (06:19→22:24)
[2021-02-14] MEDS: fentaNYL Drip 2500mCg/250mlNS 250 ML IV SCH ×2 (06:41→08:35)
[2021-02-14] MEDS: PROPOFOL 100 ML IV SCH ×6 (09:00→22:44)
[2021-02-14] MEDS: MIDAZOLAM DRIP 50 mg/50mL 50 ML IV SCH ×4 (09:15→22:00)
[2021-02-14] MEDS: POTASSIUM EFFERVESENT TAB 25 MEQ GT SCH (11:31)
[2021-02-14] MEDS: PANTOPRAZOLE 40 MG/10 ML VIAL INJ IV SCH (11:31)
[2021-02-14] MEDS: METOCLOPRAMIDE HCL 5MG/ml INJ 2ml VIAL IV SCH (11:32)
[2021-02-14] MEDS: ZINC SULFATE 220mg CAP or TAB PO SCH (11:33)
[2021-02-14] MEDS: ASCORBIC ACID 1,000 MG TAB PO SCH (11:33)
[2021-02-14] MEDS: ENOXAPARIN SOD 60 MG/0.6 ML SYRINGE SC SCH ×2 (11:33→22:43)
[2021-02-14] MEDS: CHOLECALCIFEROL (VITD3) 2,000 UNIT CAP/TAB PO SCH (11:33)
[2021-02-15] VITALS (98 sets, daily range): BP systolic 85–155; BP diastolic 41–94
[2021-02-15] MEDS: PROPOFOL 100 ML IV SCH ×7 (03:13→22:17)
[2021-02-15] MEDS: DOPamine 1600MCG/ML D5W 250 ML IV SCH (03:13)
[2021-02-15 05:13] LABS: Hematocrit 30.8 % (41.0-53.0); Hemoglobin 10.4 g/dL (13.5-17.5); Mean Corpuscular Hgb Conc. 33.8 g/dL (32.0-36.0); Mean Corpuscular Volume 85.8 fL (80.0-100.0); Red Blood Cells 3.59 10^6/uL (4.5-5.90)
[2021-02-15 05:21] LABS: Basophils % (manual) 0 (0.0-2.0); Blast Cells 0; Metamyelocytes % 0; Myelocytes % 0; Promyelocytes % 0; Reactive Lymphocytes 0
[2021-02-15] MEDS: IPRATROPIUM BROM 0.5 MG/2.5ML INH SOL NEB SCH ×3 (06:13→18:21)
[2021-02-15] MEDS: ALBUTEROL SULF 2.5 MG/0.5ML(0.5%) NEB SOLN NEB SCH ×3 (06:13→18:21)
[2021-02-15] MEDS: MIDAZOLAM DRIP 50 mg/50mL 50 ML IV SCH ×3 (06:46→22:07)
[2021-02-15] MEDS: BUMETANIDE 2.5mg/10ml (0.25 mg/ml) INJ IV SCH ×2 (06:47→17:49)
[2021-02-15 07:09] LABS: Band Neutrophils % (manual) 4; Eosinophils % (manual) 5 (0-7); Lymphocytes % (manual) 4 (10.0-50.0); Monocytes % (manual) 7 (0-12)
[2021-02-15] MEDS: fentaNYL Drip 2500mCg/250mlNS 250 ML IV SCH (07:58)
[2021-02-15] MEDS: METOCLOPRAMIDE HCL 5MG/ml INJ 2ml VIAL IV SCH (08:53)
[2021-02-15] MEDS: POTASSIUM EFFERVESENT TAB 25 MEQ GT SCH (08:53)
[2021-02-15] MEDS: ASCORBIC ACID 1,000 MG TAB PO SCH (08:54)
[2021-02-15] MEDS: PANTOPRAZOLE 40 MG/10 ML VIAL INJ IV SCH (08:54)
[2021-02-15] MEDS: ENOXAPARIN SOD 60 MG/0.6 ML SYRINGE SC SCH ×2 (08:54→22:06)
[2021-02-15] MEDS: ZINC SULFATE 220mg CAP or TAB PO SCH (08:54)
[2021-02-15] MEDS: CHOLECALCIFEROL (VITD3) 2,000 UNIT CAP/TAB PO SCH (08:54)
[2021-02-15] MEDS ORDERED: GENTAMICIN SULFATE 240 MG in D5W 5% 100 ML IV ONE (12:00)
[2021-02-16] VITALS (94 sets, daily range): BP systolic 98–150; BP diastolic 51–84
[2021-02-16] MEDS: PROPOFOL 100 ML IV SCH ×5 (01:24→20:14)
[2021-02-16] MEDS: Nepro With Carb Steady 1 Liter Bottle GT SCH (02:00)
[2021-02-16] MEDS: MIDAZOLAM DRIP 50 mg/50mL 50 ML IV SCH ×2 (03:41→11:05)
[2021-02-16 05:11] LABS: Basophils # (auto) 0.1 10 ^3/uL (0-0.2); Basophils % (auto) 1.4 % (0.0-2.0); Eosinophils # (auto) 0.8 10 ^3/uL (0-0.8); Eosinophils % (auto) 10.4 % (0.0-7.0); Hematocrit 31.2 % (41.0-53.0); Hemoglobin 10.4 g/dL (13.5-17.5); Lymphocytes # (auto) 0.8 10 ^3/uL (0.4-5.4); Lymphocytes % (auto) 10.1 % (10.0-50.0); Mean Corpuscular Hgb Conc. 33.4 g/dL (32.0-36.0); Mean Corpuscular Volume 86.7 fL (80.0-100.0); Monocytes # (auto) 0.8 10 ^3/uL (0-1.3); Monocytes % (auto) 10.1 % (0.0-12.0); Neutrophils # (auto) 5.3 10 ^3/uL (1.6-8.6); Nucleated Red Blood Cells % 0.1 %; Red Cell Distribution Width 15.2 % (11.8-14.3); White Blood Cell 7.8 10^3/uL (4.4-10.8)
[2021-02-16 05:53] LABS: BUN/Creatinine Ratio 15.9; Calcium 9.1 mg/dL (8.5-10.1)
[2021-02-16] MEDS: IPRATROPIUM BROM 0.5 MG/2.5ML INH SOL NEB SCH ×3 (06:29→21:50)
[2021-02-16] MEDS: ALBUTEROL SULF 2.5 MG/0.5ML(0.5%) NEB SOLN NEB SCH ×3 (06:29→21:50)
[2021-02-16] MEDS: fentaNYL Drip 2500mCg/250mlNS 250 ML IV SCH (07:03)
[2021-02-16] MEDS: BUMETANIDE 2.5mg/10ml (0.25 mg/ml) INJ IV SCH ×2 (07:04→18:00)
[2021-02-16] MEDS: DOPamine 1600MCG/ML D5W 250 ML IV SCH (08:00)
[2021-02-16] MEDS: POTASSIUM EFFERVESENT TAB 25 MEQ GT SCH (08:43)
[2021-02-16] MEDS: ASCORBIC ACID 1,000 MG TAB PO SCH (08:44)
[2021-02-16] MEDS: ZINC SULFATE 220mg CAP or TAB PO SCH (08:44)
[2021-02-16] MEDS: PANTOPRAZOLE 40 MG/10 ML VIAL INJ IV SCH (08:44)
[2021-02-16] MEDS: METOCLOPRAMIDE HCL 5MG/ml INJ 2ml VIAL IV SCH (08:44)
[2021-02-16] MEDS: CHOLECALCIFEROL (VITD3) 2,000 UNIT CAP/TAB PO SCH (08:45)
[2021-02-16] MEDS: ENOXAPARIN SOD 60 MG/0.6 ML SYRINGE SC SCH ×2 (08:51→10:00)
[2021-02-17] VITALS (94 sets, daily range): BP systolic 104–144; BP diastolic 54–92
[2021-02-17] MEDS: ENOXAPARIN SOD 60 MG/0.6 ML SYRINGE SC SCH ×3 (00:35→22:22)
[2021-02-17] MEDS: MIDAZOLAM DRIP 50 mg/50mL 50 ML IV SCH ×4 (03:13→22:23)
[2021-02-17] MEDS: PROPOFOL 100 ML IV SCH ×4 (03:14→22:22)
[2021-02-17] MEDS: ALBUTEROL SULF 2.5 MG/0.5ML(0.5%) NEB SOLN NEB SCH ×3 (07:15→22:17)
[2021-02-17] MEDS: IPRATROPIUM BROM 0.5 MG/2.5ML INH SOL NEB SCH ×3 (07:15→22:17)
[2021-02-17] MEDS: BUMETANIDE 2.5mg/10ml (0.25 mg/ml) INJ IV SCH ×2 (07:34→18:28)
[2021-02-17] MEDS: DOPamine 1600MCG/ML D5W 250 ML IV SCH (07:35)
[2021-02-17] MEDS: fentaNYL Drip 2500mCg/250mlNS 250 ML IV SCH (08:30)
[2021-02-17 08:57] LABS: BUN/Creatinine Ratio 15.2; Calcium 9.3 mg/dL (8.5-10.1)
[2021-02-17 09:04] LABS: Basophils # (auto) 0 10 ^3/uL (0-0.2); Basophils % (auto) 0.5 % (0.0-2.0); Eosinophils # (auto) 0.7 10 ^3/uL (0-0.8); Eosinophils % (auto) 11.9 % (0.0-7.0); Hematocrit 31.2 % (41.0-53.0); Hemoglobin 10.5 g/dL (13.5-17.5); Lymphocytes # (auto) 0.9 10 ^3/uL (0.4-5.4); Lymphocytes % (auto) 14.5 % (10.0-50.0); Mean Corpuscular Hemoglobin 29.2 pg (28.0-32.0); Mean Corpuscular Hgb Conc. 33.7 g/dL (32.0-36.0); Mean Corpuscular Volume 86.7 fL (80.0-100.0); Monocytes # (auto) 0.6 10 ^3/uL (0-1.3); Monocytes % (auto) 9.5 % (0.0-12.0); Neutrophils # (auto) 3.8 10 ^3/uL (1.6-8.6); Neutrophils % (auto) 63.6 % (37.0-80.0); Nucleated Red Blood Cells % 0.3 %; Red Cell Distribution Width 14.9 % (11.8-14.3)
[2021-02-17 09:11] LABS: Potassium 2.9 mmol/L (3.5-5.1)
[2021-02-17] MEDS: PANTOPRAZOLE 40 MG/10 ML VIAL INJ IV SCH (09:43)
[2021-02-17] MEDS: POTASSIUM EFFERVESENT TAB 25 MEQ GT SCH (09:43)
[2021-02-17] MEDS: ZINC SULFATE 220mg CAP or TAB PO SCH (09:44)
[2021-02-17] MEDS: CHOLECALCIFEROL (VITD3) 2,000 UNIT CAP/TAB PO SCH (09:44)
[2021-02-17] MEDS: ASCORBIC ACID 1,000 MG TAB PO SCH (09:44)
[2021-02-17] MEDS: METOCLOPRAMIDE HCL 5MG/ml INJ 2ml VIAL IV SCH (09:44)
[2021-02-17] MEDS: POTASSIUM CHL 20MEQ/100ML 100 ML IV SCH ×3 (10:30→15:00)
[2021-02-17] MEDS ORDERED: GENTAMICIN SULFATE 240 MG in D5W 5% 100 ML IV ONE (13:00)
[2021-02-17 22:21] LABS: BUN/Creatinine Ratio 15.4; Calcium 9.1 mg/dL (8.5-10.1); Potassium 3.7 mmol/L (3.5-5.1)
[2021-02-18] VITALS (89 sets, daily range): BP systolic 118–168; BP diastolic 65–107
[2021-02-18] MEDS: PROPOFOL 100 ML IV SCH (04:00)
[2021-02-18] MEDS: MIDAZOLAM DRIP 50 mg/50mL 50 ML IV SCH (04:00)
[2021-02-18] MEDS: IPRATROPIUM BROM 0.5 MG/2.5ML INH SOL NEB SCH ×3 (06:33→18:52)
[2021-02-18] MEDS: ALBUTEROL SULF 2.5 MG/0.5ML(0.5%) NEB SOLN NEB SCH ×3 (06:33→18:52)
[2021-02-18 06:52] LABS: Potassium 3.2 mmol/L (3.5-5.1)
[2021-02-18 06:56] LABS: BUN/Creatinine Ratio 15.2; Basophils # (auto) 0.1 10 ^3/uL (0-0.2); Basophils % (auto) 1.2 % (0.0-2.0); Calcium 9.3 mg/dL (8.5-10.1); Eosinophils # (auto) 0.7 10 ^3/uL (0-0.8); Eosinophils % (auto) 8.3 % (0.0-7.0); Hematocrit 30.6 % (41.0-53.0); Hemoglobin 10.2 g/dL (13.5-17.5); Lymphocytes % (auto) 11.8 % (10.0-50.0); Mean Corpuscular Hemoglobin 28.8 pg (28.0-32.0); Mean Corpuscular Hgb Conc. 33.4 g/dL (32.0-36.0); Mean Corpuscular Volume 86.2 fL (80.0-100.0); Monocytes # (auto) 0.7 10 ^3/uL (0-1.3); Monocytes % (auto) 8.1 % (0.0-12.0); Neutrophils # (auto) 5.7 10 ^3/uL (1.6-8.6); Neutrophils % (auto) 70.6 % (37.0-80.0); Nucleated Red Blood Cells % 0.1 %; Red Blood Cells 3.55 10^6/uL (4.5-5.90); Red Cell Distribution Width 14.9 % (11.8-14.3); White Blood Cell 8.1 10^3/uL (4.4-10.8)
[2021-02-18] MEDS: BUMETANIDE 2.5mg/10ml (0.25 mg/ml) INJ IV SCH ×2 (08:29→18:00)
[2021-02-18] MEDS: DOPamine 1600MCG/ML D5W 250 ML IV SCH (09:46)
[2021-02-18] MEDS: METOCLOPRAMIDE HCL 5MG/ml INJ 2ml VIAL IV SCH (09:47)
[2021-02-18] MEDS: CHOLECALCIFEROL (VITD3) 2,000 UNIT CAP/TAB PO SCH (09:47)
[2021-02-18] MEDS: PANTOPRAZOLE 40 MG/10 ML VIAL INJ IV SCH (09:47)
[2021-02-18] MEDS: ASCORBIC ACID 1,000 MG TAB PO SCH (09:47)
[2021-02-18] MEDS: POTASSIUM EFFERVESENT TAB 25 MEQ GT SCH (09:47)
[2021-02-18] MEDS: ZINC SULFATE 220mg CAP or TAB PO SCH (09:47)
[2021-02-18] MEDS: ENOXAPARIN SOD 60 MG/0.6 ML SYRINGE SC SCH ×2 (09:48→22:18)
[2021-02-18] MEDS: fentaNYL Drip 2500mCg/250mlNS 250 ML IV SCH (15:30)
[2021-02-18 15:32] LABS: INR 1.06 (0.9-1.15); Partial Thromboplastin Time 25.1 sec (23.6-33.0)
[2021-02-18] MEDS ORDERED: POTASSIUM CHL 20MEQ/100ML 100 ML IV ONE (16:00)
[2021-02-18] MEDS: POTASSIUM CHL 20MEQ/100ML 100 ML IV SCH ×2 (16:24→18:28)
[2021-02-19] VITALS (88 sets, daily range): BP systolic 111–147; BP diastolic 63–91
[2021-02-19] MEDS: DOPamine 1600MCG/ML D5W 250 ML IV SCH ×2 (01:31→19:22)
[2021-02-19 04:10] LABS: Basophils # (auto) 0.1 10 ^3/uL (0-0.2); Basophils % (auto) 0.8 % (0.0-2.0); Eosinophils # (auto) 0.4 10 ^3/uL (0-0.8); Eosinophils % (auto) 4.5 % (0.0-7.0); Hematocrit 31.5 % (41.0-53.0); Hemoglobin 10.5 g/dL (13.5-17.5); Lymphocytes % (auto) 10.2 % (10.0-50.0); Mean Corpuscular Hemoglobin 28.8 pg (28.0-32.0); Mean Corpuscular Hgb Conc. 33.4 g/dL (32.0-36.0); Mean Corpuscular Volume 86.3 fL (80.0-100.0); Monocytes # (auto) 0.8 10 ^3/uL (0-1.3); Monocytes % (auto) 8.6 % (0.0-12.0); Neutrophils # (auto) 7.2 10 ^3/uL (1.6-8.6); Neutrophils % (auto) 75.9 % (37.0-80.0); Red Blood Cells 3.64 10^6/uL (4.5-5.90); White Blood Cell 9.4 10^3/uL (4.4-10.8)
[2021-02-19 04:51] LABS: Calcium 9.2 mg/dL (8.5-10.1); Potassium 3.5 mmol/L (3.5-5.1)
[2021-02-19] MEDS: BUMETANIDE 2.5mg/10ml (0.25 mg/ml) INJ IV SCH ×2 (06:00→18:19)
[2021-02-19] MEDS: IPRATROPIUM BROM 0.5 MG/2.5ML INH SOL NEB SCH ×3 (07:16→22:07)
[2021-02-19] MEDS: ALBUTEROL SULF 2.5 MG/0.5ML(0.5%) NEB SOLN NEB SCH ×3 (07:16→22:07)
[2021-02-19] MEDS: POTASSIUM EFFERVESENT TAB 25 MEQ GT SCH (09:34)
[2021-02-19] MEDS: ENOXAPARIN SOD 60 MG/0.6 ML SYRINGE SC SCH ×2 (09:35→22:17)
[2021-02-19] MEDS: CHOLECALCIFEROL (VITD3) 2,000 UNIT CAP/TAB PO SCH (09:35)
[2021-02-19] MEDS: ZINC SULFATE 220mg CAP or TAB PO SCH (09:35)
[2021-02-19] MEDS: METOCLOPRAMIDE HCL 5MG/ml INJ 2ml VIAL IV SCH (09:35)
[2021-02-19] MEDS: ASCORBIC ACID 1,000 MG TAB PO SCH (09:35)
[2021-02-19] MEDS: PANTOPRAZOLE 40 MG/10 ML VIAL INJ IV SCH (10:07)
[2021-02-19] MEDS ORDERED: LIDOCAINE 1%-Mpf/Epinephrine 1:200,000 ONE (13:03)
[2021-02-19] MEDS ORDERED: fentaNYL CITRATE 100 MCG/2 ML VL ONE (13:29)
[2021-02-19] MEDS ORDERED: KETAMINE HCL 10 ML ONE (13:29)
[2021-02-19] MEDS ORDERED: MIDAZOLAM HCL 2MG/2ML 2ml VIAL (1mg/ml) ONE (13:30)
[2021-02-19] MEDS: fentaNYL Drip 2500mCg/250mlNS 250 ML IV SCH ×2 (16:07→22:17)
[2021-02-19] MEDS: MIDAZOLAM DRIP 50 mg/50mL 50 ML IV SCH ×2 (16:07→22:32)
[2021-02-19] MEDS ORDERED: LIDOCAINE 1% (LOCAL ANESTH.) PF 5ml SDV ID ONE (17:15)
[2021-02-19] MEDS: PROPOFOL 100 ML IV SCH (22:06)
[2021-02-19] MEDS: SODIUM CHLOR 0.9% PF (SALINE LOCK) 10ML VIAL/SYR IV SCH (22:17)
[2021-02-20] VITALS (89 sets, daily range): BP systolic 104–163; BP diastolic 62–95
[2021-02-20] MEDS: PROPOFOL 100 ML IV SCH ×3 (00:47→08:21)
[2021-02-20] MEDS: ROCURONIUM 10MG/ML 10ML VIAL IV PRN (01:14)
[2021-02-20] MEDS: MIDAZOLAM DRIP 50 mg/50mL 50 ML IV SCH ×3 (02:48→09:31)
[2021-02-20] MEDS: BUMETANIDE 2.5mg/10ml (0.25 mg/ml) INJ IV SCH ×2 (06:23→17:51)
[2021-02-20] MEDS: DOPamine 1600MCG/ML D5W 250 ML IV SCH (08:44)
[2021-02-20] MEDS: fentaNYL Drip 2500mCg/250mlNS 250 ML IV SCH ×2 (09:06→20:43)
[2021-02-20] MEDS: PANTOPRAZOLE 40 MG/10 ML VIAL INJ IV SCH (09:44)
[2021-02-20] MEDS: ZINC SULFATE 220mg CAP or TAB PO SCH (09:45)
[2021-02-20] MEDS: CHOLECALCIFEROL (VITD3) 2,000 UNIT CAP/TAB PO SCH (09:45)
[2021-02-20] MEDS: ENOXAPARIN SOD 60 MG/0.6 ML SYRINGE SC SCH ×2 (09:45→22:14)
[2021-02-20] MEDS: METOCLOPRAMIDE HCL 5MG/ml INJ 2ml VIAL IV SCH (09:45)
[2021-02-20] MEDS: POTASSIUM EFFERVESENT TAB 25 MEQ GT SCH (09:45)
[2021-02-20] MEDS: SODIUM CHLOR 0.9% PF (SALINE LOCK) 10ML VIAL/SYR IV SCH ×2 (09:46→22:14)
[2021-02-20] MEDS: ASCORBIC ACID 1,000 MG TAB PO SCH (09:56)
[2021-02-20] MEDS: IPRATROPIUM BROM 0.5 MG/2.5ML INH SOL NEB SCH ×2 (13:25→22:35)
[2021-02-20] MEDS: ALBUTEROL SULF 2.5 MG/0.5ML(0.5%) NEB SOLN NEB SCH ×2 (13:25→22:35)
[2021-02-21] VITALS (87 sets, daily range): BP systolic 116–155; BP diastolic 64–91
[2021-02-21] MEDS: DOPamine 1600MCG/ML D5W 250 ML IV SCH ×2 (02:04→21:46)
[2021-02-21] MEDS: BUMETANIDE 2.5mg/10ml (0.25 mg/ml) INJ IV SCH ×2 (05:48→18:00)
[2021-02-21] MEDS: fentaNYL Drip 2500mCg/250mlNS 250 ML IV SCH (06:28)
[2021-02-21] MEDS: IPRATROPIUM BROM 0.5 MG/2.5ML INH SOL NEB SCH ×3 (08:26→19:33)
[2021-02-21] MEDS: ALBUTEROL SULF 2.5 MG/0.5ML(0.5%) NEB SOLN NEB SCH ×3 (08:26→19:33)
[2021-02-21] MEDS: METOCLOPRAMIDE HCL 5MG/ml INJ 2ml VIAL IV SCH (09:14)
[2021-02-21] MEDS: PANTOPRAZOLE 40 MG/10 ML VIAL INJ IV SCH (09:14)
[2021-02-21] MEDS: POTASSIUM EFFERVESENT TAB 25 MEQ GT SCH (10:00)
[2021-02-21] MEDS: ASCORBIC ACID 1,000 MG TAB PO SCH (10:00)
[2021-02-21] MEDS: ZINC SULFATE 220mg CAP or TAB PO SCH (10:00)
[2021-02-21] MEDS: CHOLECALCIFEROL (VITD3) 2,000 UNIT CAP/TAB PO SCH (10:00)
[2021-02-21] MEDS: SODIUM CHLOR 0.9% PF (SALINE LOCK) 10ML VIAL/SYR IV SCH ×2 (10:24→21:46)
[2021-02-21] MEDS: ENOXAPARIN SOD 60 MG/0.6 ML SYRINGE SC SCH ×2 (10:26→21:50)
[2021-02-21] MEDS: MIDAZOLAM DRIP 50 mg/50mL 50 ML IV SCH (15:36)
[2021-02-21] MEDS: PROPOFOL 100 ML IV SCH (15:37)
[2021-02-22] VITALS (39 sets, daily range): BP systolic 99–142; BP diastolic 59–91
[2021-02-22 04:21] LABS: Basophils # (auto) 0.1 10 ^3/uL (0-0.2); Hemoglobin 10.7 g/dL (13.5-17.5); Lymphocytes # (auto) 1.4 10 ^3/uL (0.4-5.4); Mean Corpuscular Volume 86.5 fL (80.0-100.0); Red Cell Distribution Width 14.8 % (11.8-14.3); White Blood Cell 9.2 10^3/uL (4.4-10.8)
[2021-02-22 04:22] LABS: Basophils % (auto) 1.4 % (0.0-2.0); Eosinophils # (auto) 0.6 10 ^3/uL (0-0.8); Eosinophils % (auto) 6.2 % (0.0-7.0); Hematocrit 31.4 % (41.0-53.0); Lymphocytes % (auto) 15.7 % (10.0-50.0); Mean Corpuscular Hemoglobin 29.5 pg (28.0-32.0); Mean Corpuscular Hgb Conc. 34.1 g/dL (32.0-36.0); Monocytes # (auto) 0.8 10 ^3/uL (0-1.3); Monocytes % (auto) 9.2 % (0.0-12.0); Neutrophils # (auto) 6.2 10 ^3/uL (1.6-8.6); Neutrophils % (auto) 67.5 % (37.0-80.0); Nucleated Red Blood Cells % 0.1 %; Red Blood Cells 3.63 10^6/uL (4.5-5.90)
[2021-02-22 04:35] LABS: BUN/Creatinine Ratio 19.3; Calcium 9.5 mg/dL (8.5-10.1); Potassium 4.7 mmol/L (3.5-5.1)
[2021-02-22] MEDS: BUMETANIDE 2.5mg/10ml (0.25 mg/ml) INJ IV SCH ×2 (06:07→17:33)
[2021-02-22] MEDS: IPRATROPIUM BROM 0.5 MG/2.5ML INH SOL NEB SCH (06:54)
[2021-02-22] MEDS: ALBUTEROL SULF 2.5 MG/0.5ML(0.5%) NEB SOLN NEB SCH (06:55)
[2021-02-22] MEDS: POTASSIUM EFFERVESENT TAB 25 MEQ GT SCH (10:00)
[2021-02-22] MEDS: PROPOFOL 100 ML IV SCH (10:00)
[2021-02-22] MEDS: ASCORBIC ACID 1,000 MG TAB PO SCH (10:14)
[2021-02-22] MEDS: CHOLECALCIFEROL (VITD3) 2,000 UNIT CAP/TAB PO SCH (10:14)
[2021-02-22] MEDS: PANTOPRAZOLE 40 MG/10 ML VIAL INJ IV SCH (10:14)
[2021-02-22] MEDS: ENOXAPARIN SOD 60 MG/0.6 ML SYRINGE SC SCH ×2 (10:14→21:28)
[2021-02-22] MEDS: ZINC SULFATE 220mg CAP or TAB PO SCH (10:14)
[2021-02-22] MEDS: METOCLOPRAMIDE HCL 5MG/ml INJ 2ml VIAL IV SCH (10:14)
[2021-02-22] MEDS: SODIUM CHLOR 0.9% PF (SALINE LOCK) 10ML VIAL/SYR IV SCH ×2 (10:15→21:27)
[2021-02-22] MEDS ORDERED: PULMOCORT INH SCH (22:00)
[2021-02-22] MEDS: BUDESONIDE (INHALATION) 180 MCG IH IN SCH (22:23)
[2021-02-22] MEDS: ALBUTEROL SULF HFA 90MCG INH 200DOSE IN SCH (22:23)
[2021-02-23] MEDS: ALBUTEROL SULF HFA 90MCG INH 200DOSE IN SCH ×3 (05:57→21:58)
[2021-02-23] MEDS: BUDESONIDE (INHALATION) 180 MCG IH IN SCH ×2 (05:57→21:58)
[2021-02-23 06:00] VITALS: BP 127/81
[2021-02-23] MEDS: BUMETANIDE 2.5mg/10ml (0.25 mg/ml) INJ IV SCH ×2 (06:00→18:17)
[2021-02-23 07:05] LABS: Calcium 9.6 mg/dL (8.5-10.1)
[2021-02-23 08:52] LABS: Potassium 2.6 mmol/L (3.5-5.1)
[2021-02-23 09:00] VITALS: BP 127/83
[2021-02-23] MEDS ORDERED: POTASSIUM EFFERVESENT TAB 25 MEQ PO ONE (09:15)
[2021-02-23] MEDS: ENOXAPARIN SOD 60 MG/0.6 ML SYRINGE SC SCH ×2 (11:38→21:29)
[2021-02-23] MEDS: SODIUM CHLOR 0.9% PF (SALINE LOCK) 10ML VIAL/SYR IV SCH ×2 (11:38→21:29)
[2021-02-23] MEDS: CHOLECALCIFEROL (VITD3) 2,000 UNIT CAP/TAB PO SCH (11:38)
[2021-02-23] MEDS: POTASSIUM CHL 20MEQ/100ML 100 ML IV SCH ×3 (11:39→16:34)
[2021-02-23 13:00] VITALS: BP 135/80
[2021-02-23 17:13] VITALS: BP 134/81
[2021-02-23 21:46] LABS: BUN/Creatinine Ratio 20.4; Calcium 9.1 mg/dL (8.5-10.1)
[2021-02-23 21:48] LABS: Potassium 2.8 mmol/L (3.5-5.1)
[2021-02-23 22:00] VITALS: BP 151/87
[2021-02-23] MEDS ORDERED: POTASSIUM CHL 20 Meq TABLET PO ONE (22:15)
[2021-02-24 05:00] VITALS: BP 140/87
[2021-02-24] MEDS: BUMETANIDE 2.5mg/10ml (0.25 mg/ml) INJ IV SCH ×2 (07:37→18:48)
[2021-02-24] MEDS: BUDESONIDE (INHALATION) 180 MCG IH IN SCH ×2 (09:14→21:10)
[2021-02-24] MEDS: ALBUTEROL SULF HFA 90MCG INH 200DOSE IN SCH ×3 (09:14→21:10)
[2021-02-24] MEDS: CHOLECALCIFEROL (VITD3) 2,000 UNIT CAP/TAB PO SCH (10:12)
[2021-02-24] MEDS: ENOXAPARIN SOD 60 MG/0.6 ML SYRINGE SC SCH ×2 (10:13→21:44)
[2021-02-24] MEDS: SODIUM CHLOR 0.9% PF (SALINE LOCK) 10ML VIAL/SYR IV SCH ×2 (10:14→21:44)
[2021-02-24 10:34] VITALS: BP 138/88
[2021-02-24 11:53] LABS: Basophils # (auto) 0.2 10 ^3/uL (0-0.2); Basophils % (auto) 2.2 % (0.0-2.0); Eosinophils # (auto) 0.4 10 ^3/uL (0-0.8); Eosinophils % (auto) 4.9 % (0.0-7.0); Hemoglobin 10.5 g/dL (13.5-17.5); Lymphocytes # (auto) 1.6 10 ^3/uL (0.4-5.4); Lymphocytes % (auto) 18.1 % (10.0-50.0); Mean Corpuscular Hemoglobin 29.2 pg (28.0-32.0); Mean Corpuscular Hgb Conc. 33.9 g/dL (32.0-36.0); Monocytes # (auto) 0.9 10 ^3/uL (0-1.3); Monocytes % (auto) 10.3 % (0.0-12.0); Neutrophils # (auto) 5.9 10 ^3/uL (1.6-8.6); Neutrophils % (auto) 64.5 % (37.0-80.0); Nucleated Red Blood Cells % 0.1 %; Red Blood Cells 3.61 10^6/uL (4.5-5.90); Red Cell Distribution Width 14.2 % (11.8-14.3); White Blood Cell 9.1 10^3/uL (4.4-10.8)
[2021-02-24 12:08] LABS: BUN/Creatinine Ratio 19.8; Calcium 8.9 mg/dL (8.5-10.1)
[2021-02-24 12:32] LABS: Potassium 2.9 mmol/L (3.5-5.1)
[2021-02-24] MEDS ORDERED: POTASSIUM CHLORIDE 60 MEQ, LIDOCAINE 1% (LOCAL ANESTH.) 6 ML in SODIUM CHL 0.9% 500 ML IV ONE (12:45)
[2021-02-24] MEDS ORDERED: POTASSIUM EFFERVESENT TAB 25 MEQ PO ONE (12:45)
[2021-02-24 13:33] VITALS: BP 144/91
[2021-02-24] MEDS ORDERED: MORPHINE SULFATE INJECTION 2 MG/ML SYRG IV PRN (16:45)
[2021-02-24] MEDS ORDERED: HYDROcodone-ACET 5/325MG TAB PO PRN (16:45)
[2021-02-24 17:00] VITALS: BP 125/78
[2021-02-24 22:00] VITALS: BP 135/81
[2021-02-25 05:00] VITALS: BP 142/79
[2021-02-25] MEDS: BUMETANIDE 2.5mg/10ml (0.25 mg/ml) INJ IV SCH (05:55)
[2021-02-25] MEDS: ALBUTEROL SULF HFA 90MCG INH 200DOSE IN SCH ×2 (06:11→14:51)
[2021-02-25] MEDS: BUDESONIDE (INHALATION) 180 MCG IH IN SCH (06:12)
[2021-02-25 06:33] LABS: Hemoglobin 10.5 g/dL (13.5-17.5)
[2021-02-25 06:39] LABS: Hematocrit 30.4 % (41.0-53.0); Mean Corpuscular Hemoglobin 29.5 pg (28.0-32.0); Mean Corpuscular Hgb Conc. 34.5 g/dL (32.0-36.0); Mean Corpuscular Volume 85.7 fL (80.0-100.0); Red Blood Cells 3.54 10^6/uL (4.5-5.90); Red Cell Distribution Width 14.4 % (11.8-14.3); White Blood Cell 8.4 10^3/uL (4.4-10.8)
[2021-02-25 06:41] LABS: BUN/Creatinine Ratio 18.5; Potassium 3.2 mmol/L (3.5-5.1)
[2021-02-25 06:42] LABS: Basophils % (manual) 0 (0.0-2.0); Blast Cells 0; Promyelocytes % 0; Reactive Lymphocytes 0
[2021-02-25 09:22] LABS: Band Neutrophils % (manual) 2; Eosinophils % (manual) 6 (0-7); Lymphocytes % (manual) 16 (10.0-50.0); Metamyelocytes % 1; Monocytes % (manual) 9 (0-12); Myelocytes % 1
[2021-02-25] MEDS: POTASSIUM CHL 20MEQ/100ML 100 ML IV SCH ×3 (09:45→13:45)
[2021-02-25] MEDS: SODIUM CHLOR 0.9% PF (SALINE LOCK) 10ML VIAL/SYR IV SCH (10:00)
[2021-02-25] MEDS: CHOLECALCIFEROL (VITD3) 2,000 UNIT CAP/TAB PO SCH (10:00)
[2021-02-25] MEDS: ENOXAPARIN SOD 60 MG/0.6 ML SYRINGE SC SCH (10:00)
[2021-02-25 13:00] VITALS: BP 140/84
[2021-02-25 15:14] VITALS: BP 142/79
[2021-02-25 17:00] VITALS: BP 133/93
== END 2021-02-25 18:00 | disposition home or self-care (01) | DRG 720 ==
LOC: EDBD 15:23 → ER 15:23 → TELE 19:43 → ICU WEST 01-18 09:20 → TELE-EAST 02-22 13:15
PROVIDERS: ADMIT Family Medicine; ATTEND Internal Medicine Pulmonary Disease
PROC: 5A1955Z Respiratory Ventilation, Greater than 96 Consecutive Hours (ICD-10-PCS; principal; 2021-01-16)
PROC: XW033E5 Introduction of Remdesivir Anti-infective into Peripheral Vein, Percutaneous Approach, New Technology Group 5 (ICD-10-PCS; 2021-01-16)
PROC: 0BH17EZ Insertion of Endotracheal Airway into Trachea, Via Natural or Artificial Opening (ICD-10-PCS; 2021-01-16)
PROC: 06HY33Z Insertion of Infusion Device into Lower Vein, Percutaneous Approach (ICD-10-PCS; 2021-01-16)
PROC: 02HV33Z Insertion of Infusion Device into Superior Vena Cava, Percutaneous Approach (ICD-10-PCS; 2021-01-19)
PROC: B544ZZA Ultrasonography of Left Jugular Veins, Guidance (ICD-10-PCS; 2021-01-19)
PROC: 5A1D70Z Performance of Urinary Filtration, Intermittent, Less than 6 Hours Per Day (ICD-10-PCS; 2021-01-20)
PROC: XW033H5 Introduction of Tocilizumab into Peripheral Vein, Percutaneous Approach, New Technology Group 5 (ICD-10-PCS; 2021-01-20)
PROC: 05HD33Z Insertion of Infusion Device into Right Cephalic Vein, Percutaneous Approach (ICD-10-PCS; 2021-02-18)
PROC: B54MZZA Ultrasonography of Right Upper Extremity Veins, Guidance (ICD-10-PCS; 2021-02-18)
PROC: 5A09357 Assistance with Respiratory Ventilation, Less than 24 Consecutive Hours, Continuous Positive Airway Pressure (ICD-10-PCS; 2021-02-19)
PROC: 02HV33Z Insertion of Infusion Device into Superior Vena Cava, Percutaneous Approach (ICD-10-PCS; 2021-02-19)
PROC: 0BJ Respiratory System, Inspection (ICD-10-PCS; 2021-02-19)
PROC: 5A09357 Assistance with Respiratory Ventilation, Less than 24 Consecutive Hours, Continuous Positive Airway Pressure (ICD-10-PCS; 2021-02-21)
DX: A41.89 Other specified sepsis (principal); J96.01 Acute respiratory failure with hypoxia; J12.82 Pneumonia due to coronavirus disease 2019; N17.0 Acute kidney failure with tubular necrosis; U07.1 COVID-19; B96.5 Pseudomonas (aeruginosa) (mallei) (pseudomallei) as the cause of diseases classified elsewhere; E11.65 Type 2 diabetes mellitus with hyperglycemia; R65.21 Severe sepsis with septic shock; E87.1 Hypo-osmolality and hyponatremia; Z68.43 Body mass index [BMI] 50.0-59.9, adult; N18.9 Chronic kidney disease, unspecified; R74.01 Elevation of levels of liver transaminase levels; E66.01 Morbid (severe) obesity due to excess calories; E87.6 Hypokalemia; L89.159 Pressure ulcer of sacral region, unspecified stage
CPT/HCPCS: 31500; 36415; 36556; 36569; 36600; 71045; 76604; 76775; 80048; 80053; 80074; 80170; 81001; 82306; 82565; 82570; 82728; 82805; 82962; 83036; 83605; 83615; 83735; 83880; 84156; 84300; 84443; 84484; 85007; 85025; 85027; 85379; 85610; 85730; 86141; 87040; 87070; 87077; 87081; 87186; 87205; 87426; 90935; 92507; 92610; 93005; 93970; 94002; 94003; 94640; 94660; 96365; 96375; 97110; 97530; 99291; C9113; G0378; J0330; J0690; J1100; J1265; J1815; J2001; J2185; J2250; J2543; J2704; J3480; J7060; P9047